=== PATIENT | female | born 1970 | race Caucasian/White ===

== ENCOUNTER 2020-01-03 07:35 | Outpatient (CLI) | payer MEDICARE, SELFPAY ==
--- NOTE | 2020-01-03 08:00 | CT_ITS ---
WS: [id number] CT CHEST TECHNIQUE: Noncontrast CT of the chest with coronal and sagittal reformatted images. CLINICAL INFORMATION: Hemoptysis COMPARISON: CT chest November 12, 2012 DLP: 1072.[address] scans at [facility] use at least one of these dose optimization techniques: automat ed exposure control; mA and/or kV adjustment per patient size (includes targeted exams where dose is matched to clinical indication); or iterative reconstruction. FINDINGS: No acute pulmonary infiltrates. Lungs are well aerated. No consolidation or pleural fluid. Two 5 mm n oncalcified pulmonary nodules in the right upper lobe subpleural in location. Small subpleural nodule is unchanged. Slightly hazy groundglass nodule is more prominent compared to 2013. Slight fibrosis r ight lung base. No other suspicious pulmonary opacities. Calcified granuloma left lower lobe. Calcified left hilar no maurice. Normal thyroid gland. No mediastinal or hilar lymphadenopathy. No axillary lymphadenopathy. Adre nal glands are normal. Normal GE junction. Chronic compression anterior wedging at T12 is unchanged s emma 2013. CT/CT chest wo con [id number] IMPRESSION: 1. Two small 5 mm pulmonary nodules in the right upper lobe subpleural in loca tion. More hazy groundglass nodule is more prominent compared to 2013. Subpleur al nodule is stable. Recommend 12 month follow-up. 2. Mild chronic emphysematous changes. No acute pulmonary infiltrates. Slight fibrosis right lung base. 3. No mediastinal or hilar lymphadenopathy. 4. Chronic calcified granulomatous disease. 5. Chronic anterior wedging and compression at T12.
== END 2020-01-03 07:36 | disposition home or self-care (01) ==
LOC: RADWPI 07:43
PROVIDERS: Family Provider Nurse Practitioner Family; PCP Nurse Practitioner Family; Visit Provider Internal Medicine Critical Care Medicine
DX: R04.2 Hemoptysis (principal); R91.8 Other nonspecific abnormal finding of lung field; J43.9 Emphysema, unspecified; D71 Functional disorders of polymorphonuclear neutrophils
CPT/HCPCS: 71250

== ENCOUNTER 2020-04-10 17:03 | Emergency (ER) | payer MEDICARE, SELFPAY ==
[2020-04-10 17:25] VITALS: BP 162/104; PULSE 87; RESP 16; TEMP 36.7; O2SAT 96; BMI 34.9
--- NOTE | 2020-04-10 17:42 | XRR_ITS ---
PROCEDURE INFORMATION: Exam: XR Chest, 1 View Exam date and time: 04/10/2020 6:21 PM Age: 49 years old Clinical indication: Chest pain; Patient HX: C/O epigastric pain; Additional info: Epigastric/chest pain TECHNIQUE: Imaging protocol: XR of the chest Views: 1 view. COMPARISON: CT chest wo con [id number] 01/03/2020 8:00 AM FINDINGS: Lungs: Hyperinflation and mild interstitial prominence. No acute airspace disease. Pleural space: No pleural effusion. Heart/Mediastinum: No cardiomegaly. Bones/joints: Degenerative change and chronic T12 compression deformity, which was better visualized on CT. XR/XR chest 1V portable [id number] IMPRESSION: Hyperinflation, without acute airspace or pleural disease.
--- NOTE | 2020-04-10 17:42 | ECG_ITS ---
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 Measurements Intervals [place] Rate: 94 P: 55 ME: 168 QRS: 6 QRSD: 83 T: 47 QT: 354 QTc: 444 Interpretive Statements SINUS RHYTHM Compared to ECG 05/31/2017 04:35:56 Myocardial infarct finding no longer present Electronically Signed On 04-11-2020 20:26:41 CDT by Cornelia Barbour M.D. [id number] f
--- NOTE | 2020-04-10 17:43 | W.ED.ABDPA2 ---
HPI - Abdominal Pain General: Chief Complaint: Abdominal Pain Stated Complaint: abd pain/N/V Time Seen by Provider: 04/10/20 17:41 History of Present Illness: HPI narrative: Patient is a 49-year-old female comes to the ED with epigastric pain nausea and vomiting. Symptoms started approximately 4 days ago. Epigastric pain is described as a burning pain that goes up into the chest. She rates pain 8 out of 10. She has had acid reflux in the past but never this bad. She also is having some abdominal pain in the right upper quadrant area and also in the lower abdomen. She has taken some antacids but that has not helped. She has trouble keeping any food or drink down and describes that eating fattier foods makes symptoms worse. She also says that laying flat makes symptoms worse and sitting up helps relieve symptoms. Bowel movements have been normal and she denies any constipation or diarrhea, black tarry stool or blood in stool. Associated Symptoms: Reports nausea and vomiting; Denies chills, constipation, diarrhea, dysuria, fever(s), hematochezia and hematuria Review of Systems Const: Denies: fever(s), chills or fatigue Eyes: Denies: change in vision or eye discomfort ENMT: Denies: throat pain, odynophagia, nasal discharge or nasal congestion Card: Denies: chest pain, palpitations, edema, swelling of feet/ankles, dyspnea on exertion or orthopnea Resp: Denies: dyspnea, productive cough or non-productive cough GI: Reports: abdominal pain (Right upper quadrant and epigastric pain and lower abdominal), nausea and vomiting; Denies: diarrhea, constipation or hematochezia : Reports: flank pain (left side) and urinary frequency (increased); Denies: dysuria or hematuria Musc: Denies: neck pain, back pain or extremity swelling Skin/Breast: Denies: rash or new lesions Neuro: Denies: headache(s), numbness in extremities or weakness in extremities PFSH ED PFSH: Medical History COPD (chronic obstructive pulmonary disease) Depression with anxiety HTN (hypertension) Hyperlipidemia Surgical History History of ankle surgery Family History Father Hyperlipidemia Lymphoma Renal failure Mother Hyperlipidemia Social History Smoking and tobacco status: current every day smoker cigarettes Packs smoked per day: 1 Years cigarettes smoked: 25 Alcohol intake: never Lives independently: Yes Household members: family Current occupational status: disabled History of recent travel: No Current gender identity: Female Physical Exam Const: COMMON NORMALS: no acute distress, patient oriented x3 and alert GENERAL APPEARANCE: cooperative; not comfortable (Patient appears uncomfortable due to epigastric pain.) HENMT: COMMON NORMALS: normocephalic HEAD & SCALP: normocephalic MOUTH: Normal oral and palatal mucosa present THROAT: posterior oropharynx normal and uvula midline Eye: COMMON NORMALS: Equal, round and reactive pupils present PUPIL: Yes Equal, round and reactive pupils present Neck/C-Spine: COMMON NORMALS: supple GENERAL: Yes normal visual inspection Resp: COMMON NORMALS: normal respiratory effort, No retractions, No use of accessory muscles and clear to auscultation bilaterally AUSCULTATION: clear to auscultation bilaterally Cardio: COMMON NORMALS: regular rate, regular rhythm, S1 normal heart sound present, S2 normal heart sound present, No gallops present (Cardio), No clicks present (Cardio), No murmurs present (Cardio) and Peripheral pulses 2+ throughout RATE: regular rate RHYTHM: regular rhythm HEART SOUNDS: S1 normal heart sound present and S2 normal heart sound present PERIPHERAL PULSES: Peripheral pulses 2+ throughout GI: COMMON NORMALS: Normal to inspection, nondistended, normoactive bowel sounds present, Soft to palpation and no masses PALPATION: Yes Soft to palpation, Yes Tenderness to palpation present (GI) Details: RUQ (Moderate pain with positive Wright sign.) and other (Epigastric region) and Yes Bladder palpation abnormal : BLADDER/KIDNEY EXAM: Yes Bladder palpation abnormal Bladder abnormal details: tender and Yes CVA tenderness on the left (mild) Back/Pelvis: GENERAL BACK: Yes CVA tenderness Extremity: COMMON NORMALS: normal to inspection and no pedal edema Neuro: COMMON NORMALS: patient oriented x3 SENSORIUM/ORIENTATION: Yes alert GAIT: Yes Normal gait present Skin: COMMON NORMALS: no rashes or lesions noted GENERAL SKIN EXAM: no rashes or lesions noted and dry skin Course Reevaluation(s): Reevaluation #1: I discussed the lab, ultrasound and CT findings with patient. Patient reports improvement in pain and nausea. I told patient that she has a hemoglobin of 9.9 which is low. Patient says she has had chronic issues with anemia and is actually gotten iron transfusions in the past. She says she needs to get in with her PCP to discuss anemia and iron transfusions again. Vital Signs: Vital signs: Vital Signs Temperature 98.0 F 04/10/20 17:25 Pulse Rate 70 04/10/20 20:40 Respiratory Rate 17 04/10/20 20:40 Blood Pressure 158/87 04/10/20 20:40 Pulse Oximetry 96 04/10/20 20:40 MDM - Abdominal Pain MDM Narrative: Medical decision making narrative: Patient is a 49-year-old female who comes to the ED with abdominal pain nausea and vomiting. Abdominal pain is described as in the lower abdomen and in the epigastric and right upper quadrant region. She states it is a burning pain that moves up through her chest. Patient also endorsed some increase urine frequency. Physical exam showed a patient in no acute distress and had some epigastric tenderness upon palpation along with right upper quadrant tenderness and positive Wright sign. Patient was also tender over the bladder and left CVA tenderness.. EKG showed normal sinus rhythm with no signs of ST segment elevation or depression seen and troponins were negative ruling out cardiac cause of pain. White blood cell count 12.8 and hemoglobin 9.9 and creatinine 1.0. UA was positive for bacteria and many white blood cells and red blood cells. Ultrasound of the gallbladder was normal and showed no bladder wall thickening, gallstones ductal dilation or obstruction. CT of the abdomen showed no acute findings. I discussed with patient about her hemoglobin level of 9.9. Her records show on 05/06/19 hemoglobin 8.5 and 11/08/18 hemoglobin 9.7. Patient denies any active bleeding, blood in stool, black tarry stool, hematuria or blood in emesis. Patient states she has a history of iron deficiency anemia and has received iron transfusions in the past for it. She states that she needs to talk with her PCP about her hemoglobin at next visit. Patient's epigastric pain and nausea improved with IV fluids, Zofran Protonix and GI cocktail. Patient was also given IV Rocephin to treat pyelonephritis. Patient diagnosed with acid reflux and pyelonephritis. She was discharged with a prescription of Zofran, ciprofloxacin and pantoprazole. She was told to follow-up with her PCP in 5 to 7 days for reevaluation. She can return to ED if she has any worsening symptoms. Patient understood and agreed with plan. Lab Data: Attestation: I reviewed the patient's lab results. Labs: Lab Results 04/10/20 04/10/20 04/10/20 Range/Units 18:01 18:01 18:01 WBC 12.8 H (4.0-10.0) 10^3/ uL RBC 4.80 (4.1-5.3) 10^6/u L Hgb 9.9 L (11.5-15.3) g/dL Hct 35.9 L (37.0-47.0) % MCV 74.8 L (81-99) fL MCH 20.6 L (28.0-34.0) pg MCHC 27.6 L (30.0-36.0) g/dL RDW 19.7 H (12.1-15.1) % Plt Count 631 H (130-400) 10^3/c mm MPV 9.5 (7.4-10.4) fL Neut % (Auto) 72.1 % Lymph % (Auto) 17.0 % Finney % (Auto) 8.5 % Eos % (Auto) 1.6 % Baso % (Auto) 0.5 % Neut # (Auto) 9.18 H (1.8-7.7) 10^3/u L Lymph # (Auto) 2.2 (0.8-4.8) 10^3/u L Finney # (Auto) 1.1 H (0.2-0.9) 10^3/u L Eos # (Auto) 0.2 (0.0-0.8) 10^3/u L Baso # (Auto) 0.1 (0.0-0.1) 10^3/u L Nucleated RBC % (a uto) 0 % Nucleated RBCs # 0.0 /100WBC Sodium 134 L (136-145) mmol/L Potassium 4.3 (3.5-5.1) mmol/L Chloride 96 L (98-107) mmol/L Carbon Dioxide 25 (22-29) mmol/L Anion Gap 17.3 (5-19) BUN 14 (6-20) mg/dL Creatinine 1.0 H (0.5-0.9) mg/dL GFR Calculation 58.5 L (90-130) mL/min Glucose 126 H (65-115) mg/dL Calculated Osmolal ity 276 L (285-295) mOsm/k g Calcium 10.6 H (8.5-10.5) mg/dL Total Bilirubin 0.3 (0.15-1.2) mg/dL AST 26 (0-32) U/L ALT 29 (0-33) U/L Alkaline Phosphata se 115 H (35-105) IU/L Troponin T Baselin e 8 (0-10) ng/L Troponin T 120 Min [place] (0-10) ng/L Delta Troponin T (0-10) ABS# Total Protein 7.9 (6.6-8.7) g/dL Albumin 4.7 (3.5-5.2) g/dL Globulin 3.2 (1.3-4.6) g/dL Lipase 45 (13-60) U/L HCG, Qual (Negative) Urine Color (Yellow) Urine Appearance (CLEAR) Urine pH (5-7) Ur Specific Gravit y (1.005-1.030) Urine Protein (Negative) Urine Glucose (UA) (Normal) Urine Ketones (Negative) Urine Blood (Negative) Urine Nitrate (Negative) Urine Bilirubin (NEGATIVE) Urine Urobilinogen (Negative) mg/dL Ur Leukocyte Rosi ase (Negative) Urine RBC (0-2) /hpf Urine WBC (0-5) /hpf Ur Squamous Epith Cells (0-5) Amorphous Sediment Urine Bacteria (NONE) 04/10/20 04/10/20 04/10/20 Range/Units 18:01 18:46 19:47 WBC (4.0-10.0) 10^3/ uL RBC (4.1-5.3) 10^6/u L Hgb (11.5-15.3) g/dL Hct (37.0-47.0) % MCV (81-99) fL MCH (28.0-34.0) pg MCHC (30.0-36.0) g/dL RDW (12.1-15.1) % Plt Count (130-400) 10^3/c mm MPV (7.4-10.4) fL Neut % (Auto) % Lymph % (Auto) % Finney % (Auto) % Eos % (Auto) % Baso % (Auto) % Neut # (Auto) (1.8-7.7) 10^3/u L Lymph # (Auto) (0.8-4.8) 10^3/u L Finney # (Auto) (0.2-0.9) 10^3/u L Eos # (Auto) (0.0-0.8) 10^3/u L Baso # (Auto) (0.0-0.1) 10^3/u L Nucleated RBC % (a uto) % Nucleated RBCs # /100WBC Sodium (136-145) mmol/L Potassium (3.5-5.1) mmol/L Chloride (98-107) mmol/L Carbon Dioxide (22-29) mmol/L Anion Gap (5-19) BUN (6-20) mg/dL Creatinine (0.5-0.9) mg/dL GFR Calculation (90-130) mL/min Glucose (65-115) mg/dL Calculated Osmolal ity (285-295) mOsm/k g Calcium (8.5-10.5) mg/dL Total Bilirubin (0.15-1.2) mg/dL AST (0-32) U/L ALT (0-33) U/L Alkaline Phosphata se (35-105) IU/L Troponin T Baselin e (0-10) ng/L Troponin T 120 Min [place] 6.72 (0-10) ng/L Delta Troponin T -1.28 L (0-10) ABS# Total Protein (6.6-8.7) g/dL Albumin (3.5-5.2) g/dL Globulin (1.3-4.6) g/dL Lipase (13-60) U/L HCG, Qual Negative (Negative) Urine Color Yellow (Yellow) Urine Appearance Cloudy (CLEAR) Urine pH 5 (5-7) Ur Specific Gravit y 1.025 (1.005-1.030) Urine Protein Neg (Negative) Urine Glucose (UA) Norm (Normal) Urine Ketones Negative (Negative) Urine Blood 2+ H (Negative) Urine Nitrate Negative (Negative) Urine Bilirubin 1+ H (NEGATIVE) Urine Urobilinogen Norm (Negative) mg/dL Ur Leukocyte Rosi ase 2+ H (Negative) Urine RBC 5-10 H (0-2) /hpf Urine WBC >100 H (0-5) /hpf Ur Squamous Epith Cells 25-40 H (0-5) Amorphous Sediment Not Reportable Urine Bacteria 2+ H (NONE) Imaging Data ^: US: Attestation: I personally reviewed and interpreted this imaging study as follows: Radiologist's impression: Gallbladder ultrasound prelim report showed normal bladder wall thickness, no stones visible, no ductal dilation or obstruction seen. CXR: Attestation: I personally reviewed and interpreted this imaging study as follows: My impression: No acute findings. Pending final radiology report. CT Abd/Pel: Attestation: I personally reviewed and interpreted this imaging study as follows: Radiologist's impression: [place] [address] CT Scan Report Signed Patient: Deandra Bro Unit #: [id number] : 1970 Age/Sex: 49 / F ADM Date: 04/10/20 Loc: ER Room/Bed: Attending Dr: Ordering Provider/Ordering MD: Job Soto Date of Service: 04/10/20 Procedure(s): CT abdomen pelvis wo con [id number] Accession Number(s): [id number] Report Number: [id number] PROCEDURE INFORMATION: Exam: CT Abdomen And Pelvis Without Contrast Exam date and time: 04/10/2020 7:16 PM Age: 49 years old Clinical indication: Nausea and vomiting; Abdominal pain; Localized; Right upper quadrant (ruq); Additional info: Ruq pain, n/v TECHNIQUE: Imaging protocol: Computed tomography of the abdomen and pelvis without contrast. Radiation optimization: All CT scans at this facility use at least one of these dose optimization techniques: automated exposure control; mA and/or kV adjustment per patient size (includes targeted exams where dose is matched to clinical indication); or iterative reconstruction. COMPARISON: CT Abdomen/Pelvis Renal [id number] 05/06/2019 7:20 AM RADIATION DOSE METRICS: Total DLP (mGy-cm): 1298.03 FINDINGS: Lungs: Limited assessment lung bases reveals a stable small 4 mm granuloma posterior basal segment left lower lobe. No visible active cardiopulmonary process within the field of view. Liver: Diffuse fatty infiltration of the liver with geographic focal fatty sparing near the teto hepatis. No visible hepatic mass or cystic structure. Mild hepatomegaly. Gallbladder and bile ducts: Gallbladder unremarkable. No visible cholelithiasis. No intra or extrahepatic biliary ectasia. Pancreas: Normal. No ductal dilation. Spleen: Rare splenic calcified granuloma. Spleen otherwise unremarkable. Adrenals: Normal. No mass. Kidneys and ureters: Normal. No hydronephrosis. Stomach and bowel: Unremarkable. No obstruction. No mucosal thickening. Appendix: The appendix is visualized appears noninflamed. Intraperitoneal space: Unremarkable. No free air. No significant fluid collection. Vasculature: The abdominal aorta is nonaneurysmal. Mild arterial sclerotic disease. Lymph nodes: No visible mesenteric or retroperitoneal lymphadenopathy. Bladder: Unremarkable as visualized. Reproductive: Unremarkable as visualized. Bones/joints: Old compression deformity T12 stable since prior study. No visible acute osseous abnormality. Soft tissues: Small periumbilical hernia containing fat only. Bilateral inguinal hernias containing fat only. CT/CT abdomen pelvis wo con [id number] IMPRESSION: Currently no visible evidence of active or acute abdominal or pelvic pathologic process. Radiation Dose CTDIVOL = (mGy): DLP = 1298.03 (mGy-cm) Dictated By: Tom Brown Signed By: Tom Brown Signed Date/Time: 04/10/201940 DD/ 39 EKG Data ^: EKG 1: Attestation: I personally reviewed and interpreted this EKG as follows: EKG interpretation date: 04/10/20 Interpretation: Normal sinus rhythm, 94 bpm, no ST segment elevation or depression seen. P waves present Discharge Plan Discharge Patient Disposition: Home, Self-Care Clinical Impression: Pyelonephritis Acid reflux disease Qualifiers: Esophagitis presence: esophagitis presence not specified Qualified Code(s): K21.9 - Gastro-esophageal reflux disease without esophagitis Anemia Qualifiers: Anemia type: iron deficiency Iron deficiency anemia type: inadequate dietary iron intake Qualified Code(s): D50.8 - Other iron deficiency anemias Condition: Stable Prescriptions: New ciprofloxacin HCl 500 mg tablet 500 mg PO Q12H 7 Days Qty: 14 RF: 0 ondansetron HCl 4 mg tablet 4 mg PO Q8H PRN (Reason: nausea and vomiting) Qty: 20 RF: 0 pantoprazole 40 mg tablet,delayed release (DR/EC) 40 mg PO DAILY Qty: 30 RF: 0 No Action tramadol 50 mg tablet 50 mg PO Q6H PRN (Reason: Pain) RF: 0 simvastatin 40 mg tablet 40 mg PO DAILY RF: 0 hydroxyzine HCl 50 mg tablet 50 mg PO .COMPLEX PRN (Reason: Itching) RF: 0 olanzapine [Zyprexa] 2.5 mg tablet 5 mg PO DAILY RF: 0 Discharge Orders: Discharge Order (Routine); Ordered 04/10/20 Ordered By: Job Soto Referrals: Helena Zaragoza NP [Primary Care Provider] - Discharge Diet: Advance as tolerated and Low Fat Discharge Activity: Increase activity as tolerated Patient Instructions: Acute Pyelonephritis (ED), Gastroesophageal Reflux Disease (ED) Activity Restrictions/Additional Instructions: Follow-up with medical provider as directed in 5-7 days. Discuss with PCP about your anemia and get hemoglobin rechecked. Take medications as prescribed. Return to the ER or your medical provider if condition worsens. Please read and understand discharge instructions. If any questions, please ask. 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
--- NOTE | 2020-04-10 17:57 | US_ITS ---
WS: [id number] RIGHT UPPER QUADRANT ULTRASOUND HISTORY: RUQ pain with N/V COMPARISON: 11/28/2014 and 04/10/2020 Liver: 13.4 cm in length. Mild coarsened echotexture from hepatic steatosis. No mass or bile duct dil atation. Gallbladder: Normally distended gallbladder with no stones or wall thickening. CBD: 0.3 cm Pancreas: Normal size and echogenicity. Right kidney: 10.4 cm in length. Normal echogenicity with no mass or hydronephrosis. Aorta and IVC: Unremarkable. No ascites. US/US gall bladder [id number] IMPRESSION: Mild hepatic steatosis. Otherwise negative.
[2020-04-10 18:15] LABS: Basophils # 0.1 10^3/uL (0.0-0.1); Basophils % 0.5 %; Eosinophils # 0.2 10^3/uL (0.0-0.8); Eosinophils % 1.6 %; Hematocrit 35.9 % (37.0-47.0); Hemoglobin 9.9 g/dL (11.5-15.3); Lymphocytes # 2.2 10^3/uL (0.8-4.8); Mean Corpuscular HGB Conc 27.6 g/dL (30.0-36.0); Mean Corpuscular Hemoglobin 20.6 pg (28.0-34.0); Mean Corpuscular Volume 74.8 fL (81-99); Mean Platelet Volume 9.5 fL (7.4-10.4); Monocytes # 1.1 10^3/uL (0.2-0.9); Monocytes % 8.5 %; Neutrophils # 9.18 10^3/uL (1.8-7.7); Neutrophils % 72.1 %; Nucleated Red Blood Cells % 0 %; Platelet Count 631 10^3/cmm (130-400); Red Cell Distribution Width 19.7 % (12.1-15.1); White Blood Count 12.8 10^3/uL (4.0-10.0)
[2020-04-10 18:30] LABS: Albumin Level 4.7 g/dL (3.5-5.2); Alkaline Phosphatase 115 IU/L (35-105); Anion Gap 17.3 (5-19); Aspartate Amino Transferase 26 U/L (0-32); Blood Urea Nitrogen 14 mg/dL (6-20); Calcium 10.6 mg/dL (8.5-10.5); Carbon Dioxide 25 mmol/L (22-29); Chloride 96 mmol/L (98-107); Globulin 3.2 g/dL (1.3-4.6); Glomerular Filtration Rate 58.5 mL/min (90-130); Glucose 126 mg/dL (65-115); Lipase 45 U/L (13-60); Osmolality Calculated 276 mOsm/kg (285-295); Potassium 4.3 mmol/L (3.5-5.1); Sodium 134 mmol/L (136-145); Total Bilirubin 0.3 mg/dL (0.15-1.2); Total Protein 7.9 g/dL (6.6-8.7); Troponin(5th) Baseline 8 ng/L (0-10)
[2020-04-10 18:34] LABS: HCG, Serum Qual Negative (Negative)
[2020-04-10 18:40] LABS: Alanine Aminotransferase 29 U/L (0-33)
[2020-04-10] MEDS: ondansetron 2 mg/ML SDV 2 mL 4 MG IVP (18:48)
[2020-04-10 18:49] VITALS: RESP 18
[2020-04-10] MEDS: morphine 4 mg/mL SDV 1 mL IVP (18:49)
[2020-04-10] MEDS: pantoprazole 40 mg SDV IVP (18:52)
[2020-04-10] MEDS: sodium chloride 0.9% 1,000 ML 999 ML IV (18:53)
[2020-04-10] MEDS: lidocaine 2% viscous 15 ML, aluminum-mag hydrox-simethicon 30 ML, sucralfate oral liq 1 GM PO (18:54)
[2020-04-10 18:58] VITALS: PULSE 92; RESP 18; O2SAT 98
--- NOTE | 2020-04-10 18:58 | CTR_ITS ---
PROCEDURE INFORMATION: Exam: CT Abdomen And Pelvis Without Contrast Exam date and time: 04/10/2020 7:16 PM Age: 49 years old Clinical indication: Nausea and vomiting; Abdominal pain; Localized; Right upper quadrant (ruq); Additional info: Ruq pain, n/v TECHNIQUE: Imaging protocol: Computed tomography of the abdomen and pelvis without contrast. Radiation optimization: All CT scans at this facility use at least one of these dose optimization techniques: automated exposure control; mA and/or kV adjustment per patient size (includes targeted exams where dose is matched to clinical indication); or iterative reconstruction. COMPARISON: CT Abdomen/Pelvis Renal [id number] 05/06/2019 7:20 AM RADIATION DOSE METRICS: Total DLP (mGy-cm): 1298.03 FINDINGS: Lungs: Limited assessment lung bases reveals a stable small 4 mm granuloma posterior basal segment left lower lobe. No visible active cardiopulmonary process within the field of view. Liver: Diffuse fatty infiltration of the liver with geographic focal fatty sparing near the teto hepatis. No visible hepatic mass or cystic structure. Mild hepatomegaly. Gallbladder and bile ducts: Gallbladder unremarkable. No visible cholelithiasis. No intra or extrahepatic biliary ectasia. Pancreas: Normal. No ductal dilation. Spleen: Rare splenic calcified granuloma. Spleen otherwise unremarkable. Adrenals: Normal. No mass. Kidneys and ureters: Normal. No hydronephrosis. Stomach and bowel: Unremarkable. No obstruction. No mucosal thickening. Appendix: The appendix is visualized appears noninflamed. Intraperitoneal space: Unremarkable. No free air. No significant fluid collection. Vasculature: The abdominal aorta is nonaneurysmal. Mild arterial sclerotic disease. Lymph nodes: No visible mesenteric or retroperitoneal lymphadenopathy. Bladder: Unremarkable as visualized. Reproductive: Unremarkable as visualized. Bones/joints: Old compression deformity T12 stable since prior study. No visible acute osseous abnormality. Soft tissues: Small periumbilical hernia containing fat only. Bilateral inguinal hernias containing fat only. CT/CT abdomen pelvis wo con [id number] IMPRESSION: Currently no visible evidence of active or acute abdominal or pelvic pathologic process. Radiation Dose CTDIVOL = (mGy): DLP = 1298.03 (mGy-cm)
[2020-04-10 19:11] LABS: Add Urine Microscopic? YES; Bilirubin Urine 1+ (NEGATIVE); Blood Urine 2+ (Negative); Glucose Urine UA Norm (Normal); Ketones Urine Negative (Negative); Leukocyte Esterase Urine 2+ (Negative); Nitrate Urine Negative (Negative); Protein Urine Neg (Negative); Specific Gravity, Urine 1.025 (1.005-1.030); Urine Appearance Cloudy (CLEAR); Urine Color Yellow (Yellow); Urobilinogen Urine Norm (Negative); pH Urine 5 (5-7)
[2020-04-10 19:14] LABS: Add Urine Culture? No; Bacteria Urine 2+; Squamous Epithelial Cell Urine 25-40 (0-5); WBC Urine >100 /hpf (0-5)
[2020-04-10] MEDS: cefTRIAXone 2,000 MG in sodium chloride 0.9% (plus) 50 ML 100 MG IV (19:55)
[2020-04-10 19:57] VITALS: BP 174/92; PULSE 80; RESP 20; O2SAT 98
[2020-04-10 20:15] LABS: Troponin 5 2HR 6.72 ng/L (0-10)
[2020-04-10 20:29] LABS: Troponin 5 2HR Delta -1.28 ABS# (0-10)
[2020-04-10 20:40] VITALS: BP 158/87; PULSE 70; RESP 17; O2SAT 96
== END 2020-04-10 20:41 | disposition home or self-care (01) ==
PROVIDERS: Emergency Provider Physician Assistant; PCP Nurse Practitioner Family
DX: N12 Tubulo-interstitial nephritis, not specified as acute or chronic (principal); K21.9 Gastro-esophageal reflux disease without esophagitis; D50.8 Other iron deficiency anemias; J44.9 Chronic obstructive pulmonary disease, unspecified; I10 Essential (primary) hypertension; E78.5 Hyperlipidemia, unspecified; F17.210 Nicotine dependence, cigarettes, uncomplicated
CPT/HCPCS: 12345; 36415; 71045; 74176; 76705; 80053; 81001; 81003; 83690; 84484; 84703; 85025; 87040; 93005; 96365; 96375; 99283; 99284; C9113; J0696; J2270; J2405; J7030

== ENCOUNTER → 2020-05-08 13:49 | Outpatient (BNVA) | payer MEDICARE, SELFPAY | PROVIDERS: PCP Nurse Practitioner Family; Visit Provider Internal Medicine Rheumatology | DX: M05.79 Rheumatoid arthritis with rheumatoid factor of multiple sites without organ or systems involvement (principal); Z79.899 Other long term (current) drug therapy; Z11.59 Encounter for screening for other viral diseases; Z11.1 Encounter for screening for respiratory tuberculosis; M54.32 Sciatica, left side; F17.210 Nicotine dependence, cigarettes, uncomplicated | CPT/HCPCS: 36415; 82306; 82728; 83540; 83550; 85651; 86140; 86480; 86704; 86803; 87340; 99203 ==

== ENCOUNTER → 2020-05-31 11:14 | Outpatient (BNVA) | payer MEDICARE, SELFPAY | PROVIDERS: PCP Nurse Practitioner Family; Visit Provider Nurse Practitioner | DX: R82.90 Unspecified abnormal findings in urine (principal); N39.0 Urinary tract infection, site not specified; F17.210 Nicotine dependence, cigarettes, uncomplicated; Z71.89 Other specified counseling | CPT/HCPCS: 81000 ==

== ENCOUNTER → 2020-07-01 13:38 | Outpatient (BNVA) | payer MEDICARE, SELFPAY | PROVIDERS: PCP Nurse Practitioner Family; Visit Provider Nurse Practitioner | DX: Z11.59 Encounter for screening for other viral diseases (principal) | CPT/HCPCS: 87635 ==

== ENCOUNTER 2020-07-02 10:49 | Emergency (ER) | payer MEDICARE, SELFPAY ==
[2020-07-02 10:59] VITALS: BP 118/77; PULSE 94; RESP 20; TEMP 39.1; O2SAT 100; BMI 34.4
--- NOTE | 2020-07-02 12:28 | W.ED.FEMALGU ---
HPI - Female Genitourinary General: Chief complaint: Urogenital-Female Stated complaint: NOT FEELING WELL Time Seen by Provider: 07/02/20 12:28 History of Present Illness: HPI Narrative: 50 yo comes in complaining of dysuria and urgency the last couple days also had a cough and diarrhea. She denies any vomiting. She has had some low-grade fever as well she had previously been on an antibiotic for UTI but it still not seem to have resolved MD elicited complaint: UTI , flank pain and difficulty urinating Pertinent past history: recurrent UTIs Onset (ago): day(s) Severity: moderate Quality of pain: cramping Consistency: constant Vaginal discharge: none Vaginal bleeding: none Urinary symptoms: Difficulty Urinating, Dysuria, Flank Pain and Frequency Exacerbating factors: urination Relieving factors: none Associated symptoms: Reports headache(s) and nausea; Deny abdominal pain, short of breath, fevers/chills, rash, seizures, syncope, vaginal bleeding, vaginal discharge or weakness Treatment prior to arrival: none Review of Systems Const: Reports: fever(s), chills, body aches, change in appetite, fatigue and malaise ENMT: Denies: throat pain, ear or mastoid pain, nasal discharge or nasal congestion Card: Denies: syncope Resp: Reports: dyspnea and non-productive cough; Denies: productive cough GI: Reports: nausea; Denies: abdominal pain : Denies: vaginal discharge Skin/Breast: Denies: rash or pruritus Neuro: Reports: headache(s) PFSH ED PFSH: Medical History COPD (chronic obstructive pulmonary disease) Depression with anxiety High risk medication use HTN (hypertension) Hyperlipidemia Immunization counseling Sciatica of left side Seropositive rheumatoid arthritis of multiple sites Surgical History History of ankle surgery Family History Father Hyperlipidemia Lymphoma Renal failure Mother Hyperlipidemia Social History Smoking and tobacco status: current every day smoker cigarettes Packs smoked per day: 0.5 Years cigarettes smoked: 25 [ Other cigarette details: Hx of 1PPD x 25 Years ] Alcohol intake: never Lives independently: Yes Household members: family Current occupational status: disabled History of recent travel: No Current gender identity: Female Physical Exam Const: COMMON NORMALS: no acute distress GENERAL APPEARANCE: cooperative and comfortable ORIENTATION/CONSCIOUSNESS: Yes awake, Yes oriented to person, Yes oriented to place and Yes oriented to time HENMT: COMMON NORMALS: normocephalic, atraumatic and hearing grossly normal bilaterally HEAD & SCALP: normocephalic and atraumatic Neck/C-Spine: COMMON NORMALS: no JVD Resp: AUSCULTATION: rhonchi (slight) and wheezes Cardio: COMMON NORMALS: no JVD, regular rate, regular rhythm and No murmurs present (Cardio) RATE: regular rate RHYTHM: regular rhythm GI: COMMON NORMALS: Soft to palpation and No hepatosplenomegaly present AUSCULTATION: Yes normoactive bowel sounds PALPATION: Yes Soft to palpation, No Tenderness to palpation present (GI), No Guarding due to palpation present (GI) and Yes No hepatosplenomegaly present : SPECULUM EXAM - VAGINA: No vaginal bleeding OB/EXTERNAL & SPECULUM: No vaginal bleeding Extremity: COMMON NORMALS: normal to inspection, capillary refill normal, no clubbing, cyanosis or edema, no calf tenderness and no pedal edema Neuro: SENSORIUM/ORIENTATION: Yes oriented to person, Yes oriented to place and Yes oriented to time Skin: COMMON NORMALS: no rashes or lesions noted GENERAL SKIN EXAM: no rashes or lesions noted Course Vital Signs: Vital signs: Vital Signs Temperature 102.3 F H 07/02/20 10:59 Pulse Rate 88 07/02/20 16:52 Respiratory Rate 23 H 07/02/20 16:52 Blood Pressure 101/66 07/02/20 16:52 Pulse Oximetry 96 07/02/20 16:52 MDM - Female MDM Narrative: Medical decision making narrative: Patient given Rocephin and will be discharged home on Cipro. She would prefer to go home at this point her oxygen sats are good we will have her monitor her oxygen sat with a sat monitor at home increase fluid intake worsening symptoms return to the emergency room. Lab Data: Labs: Lab Results 07/02/20 07/02/20 07/02/20 Range/Units 12:34 12:34 12:34 WBC 17.7 H (4.0-10.0) 10^3/ uL RBC 4.43 (4.1-5.3) 10^6/u L Hgb 9.6 L (11.5-15.3) g/dL Hct 33.7 L (37.0-47.0) % MCV 76.1 L (81-99) fL MCH 21.7 L (28.0-34.0) pg MCHC 28.5 L (30.0-36.0) g/dL RDW 20.4 H (12.1-15.1) % Plt Count 382 (130-400) 10^3/c mm MPV 9.6 (7.4-10.4) fL Neut % (Auto) 88.8 % Lymph % (Auto) 2.3 % [place] % (Auto) 8.2 % Eos % (Auto) 0.0 % Baso % (Auto) 0.3 % Neut # (Auto) 15.76 H (1.8-7.7) 10^3/u L Lymph # (Auto) 0.4 L (0.8-4.8) 10^3/u L [place] # (Auto) 1.5 H (0.2-0.9) 10^3/u L Eos # (Auto) 0.0 (0.0-0.8) 10^3/u L Baso # (Auto) 0.1 (0.0-0.1) 10^3/u L Nucleated RBC % (a uto) 0 % Nucleated RBCs # 0.0 /100WBC Fibrinogen 829 H (174-498) mg/dL D-Dimer 3.03 H (0-0.59) ug/mIFE U Sodium 131 L (136-145) mmol/L Potassium 3.9 (3.5-5.1) mmol/L Chloride 94 L (98-107) mmol/L Carbon Dioxide 23 (22-29) mmol/L Anion Gap 17.9 (5-19) BUN 13 (6-20) mg/dL Creatinine 1.4 H (0.5-0.9) mg/dL GFR Calculation 39.5 L (90-130) mL/min Glucose 141 H (65-115) mg/dL Calculated Osmolal ity 274 L (285-295) mOsm/k g Lactic Acid (0.5-2.2) mmol/L Calcium 9.2 (8.5-10.5) mg/dL Magnesium (1.7-2.3) mg/dL Ferritin (15-150) ng/mL Total Bilirubin 0.4 (0.15-1.2) mg/dL AST 21 (0-32) U/L ALT 19 (0-33) U/L Alkaline Phosphata se 126 H (35-105) IU/L Lactate Dehydrogen ase (135-214) U/L C-Reactive Protein (0.0-4.9) mg/L Total Protein 7.6 (6.6-8.7) g/dL Albumin 3.8 (3.5-5.2) g/dL Globulin 3.8 (1.3-4.6) g/dL Lipase 18 (13-60) U/L Procalcitonin (0-0.5) ng/mL Urine Color (Yellow) Urine Appearance (CLEAR) Urine pH (5-7) Ur Specific Gravit y (1.005-1.030) Urine Protein (Negative) Urine Glucose (UA) (Normal) Urine Ketones (Negative) Urine Blood (Negative) Urine Nitrate (Negative) Urine Bilirubin (Negative) Urine Urobilinogen (Negative) mg/dL Ur Leukocyte Rosi ase (Negative) Urine RBC (0-2) /hpf Urine WBC (0-5) /hpf Ur Squamous Epith Cells (0-5) /hpf Amorphous Sediment Urine Bacteria (NONE) /hpf 07/02/20 07/02/20 07/02/20 Range/Units 12:34 15:33 16:05 WBC (4.0-10.0) 10^3/ uL RBC (4.1-5.3) 10^6/u L Hgb (11.5-15.3) g/dL Hct (37.0-47.0) % MCV (81-99) fL MCH (28.0-34.0) pg MCHC (30.0-36.0) g/dL RDW (12.1-15.1) % Plt Count (130-400) 10^3/c mm MPV (7.4-10.4) fL Neut % (Auto) % Lymph % (Auto) % [place] % (Auto) % Eos % (Auto) % Baso % (Auto) % Neut # (Auto) (1.8-7.7) 10^3/u L Lymph # (Auto) (0.8-4.8) 10^3/u L [place] # (Auto) (0.2-0.9) 10^3/u L Eos # (Auto) (0.0-0.8) 10^3/u L Baso # (Auto) (0.0-0.1) 10^3/u L Nucleated RBC % (a uto) % Nucleated RBCs # /100WBC Fibrinogen (174-498) mg/dL D-Dimer (0-0.59) ug/mIFE U Sodium (136-145) mmol/L Potassium (3.5-5.1) mmol/L Chloride (98-107) mmol/L Carbon Dioxide (22-29) mmol/L Anion Gap (5-19) BUN (6-20) mg/dL Creatinine (0.5-0.9) mg/dL GFR Calculation (90-130) mL/min Glucose (65-115) mg/dL Calculated Osmolal ity (285-295) mOsm/k g Lactic Acid 1.0 (0.5-2.2) mmol/L Calcium (8.5-10.5) mg/dL Magnesium 2.5 H (1.7-2.3) mg/dL Ferritin 54 (15-150) ng/mL Total Bilirubin (0.15-1.2) mg/dL AST (0-32) U/L ALT (0-33) U/L Alkaline Phosphata se (35-105) IU/L Lactate Dehydrogen ase 234 H (135-214) U/L C-Reactive Protein 348.3 H (0.0-4.9) mg/L Total Protein (6.6-8.7) g/dL Albumin (3.5-5.2) g/dL Globulin (1.3-4.6) g/dL Lipase (13-60) U/L Procalcitonin 4.17 H (0-0.5) ng/mL Urine Color Dark yellow (Yellow) Urine Appearance Hazy A (CLEAR) Urine pH 5 (5-7) Ur Specific Gravit y 1.020 (1.005-1.030) Urine Protein 2+ H (Negative) Urine Glucose (UA) Norm (Normal) Urine Ketones 1+ H (Negative) Urine Blood 2+ H (Negative) Urine Nitrate Negative (Negative) Urine Bilirubin Neg (Negative) Urine Urobilinogen 1 H (Negative) mg/dL Ur Leukocyte Rosi ase 2+ H (Negative) Urine RBC 5-10 H (0-2) /hpf Urine WBC >100 H (0-5) /hpf Ur Squamous Epith Cells 0-4 H (0-5) /hpf Amorphous Sediment Not Reportable Urine Bacteria 3+ H (NONE) /hpf Discharge Plan Discharge Patient Disposition: Home Clinical Impression: Urinary tract infection, Suspected 2019-nCoV infection Condition: Stable Prescriptions: New ciprofloxacin HCl 500 mg tablet 500 mg PO BID Qty: 7 RF: 0 No Action tramadol 50 mg tablet 50 mg PO Q6H PRN (Reason: Pain) RF: 0 simvastatin 40 mg tablet 40 mg PO DAILY RF: 0 hydroxyzine HCl 50 mg tablet 50 mg PO .COMPLEX PRN (Reason: Itching) RF: 0 olanzapine [Zyprexa] 2.5 mg tablet 5 mg PO DAILY RF: 0 irbesartan [Avapro] 300 mg tablet 300 mg PO DAILY RF: 0 Anoro Ellipta 62.5-25 mcg/actuation blister with device 1 inh INHALATION DAILY Qty: 60 RF: 3 hydroxychloroquine 200 mg tablet 200 mg PO BID Qty: 60 RF: 2 ondansetron HCl 4 mg tablet 4 mg PO Q8H PRN (Reason: nausea and vomiting) Qty: 20 RF: 0 escitalopram oxalate 10 mg tablet 15 mg PO DAILY RF: 0 Discharge Orders: Discharge Order (Routine); Ordered 07/02/20 Ordered By: Dequan Chen Referrals: Helena Zaragoza, [employer] [Primary Care Provider] - Discharge Diet: Usual diet Discharge Activity: Increase activity as tolerated Activity Restrictions/Additional Instructions: We will discharge home on oral antibiotics. Follow-up with your primary care doctor if not improving. I do highly suspect you have COVID-19 if you have worsening breathing recheck. 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
[2020-07-02 12:41] LABS: Basophils # 0.1 10^3/uL (0.0-0.1); Basophils % 0.3 %; Hematocrit 33.7 % (37.0-47.0); Hemoglobin 9.6 g/dL (11.5-15.3); Lymphocytes # 0.4 10^3/uL (0.8-4.8); Lymphocytes % 2.3 %; Mean Corpuscular HGB Conc 28.5 g/dL (30.0-36.0); Mean Corpuscular Hemoglobin 21.7 pg (28.0-34.0); Mean Corpuscular Volume 76.1 fL (81-99); Mean Platelet Volume 9.6 fL (7.4-10.4); Monocytes # 1.5 10^3/uL (0.2-0.9); Monocytes % 8.2 %; Neutrophils # 15.76 10^3/uL (1.8-7.7); Neutrophils % 88.8 %; Nucleated Red Blood Cells % 0 %; Platelet Count 382 10^3/cmm (130-400); Red Blood Count 4.43 10^6/uL (4.1-5.3); Red Cell Distribution Width 20.4 % (12.1-15.1); White Blood Count 17.7 10^3/uL (4.0-10.0)
[2020-07-02] MEDS: sodium chloride 0.9% 1,000 ML 999 ML IV (13:04)
[2020-07-02 13:05] LABS: Alanine Aminotransferase 19 U/L (0-33); Albumin Level 3.8 g/dL (3.5-5.2); Alkaline Phosphatase 126 IU/L (35-105); Anion Gap 17.9 (5-19); Aspartate Amino Transferase 21 U/L (0-32); Blood Urea Nitrogen 13 mg/dL (6-20); Calcium 9.2 mg/dL (8.5-10.5); Carbon Dioxide 23 mmol/L (22-29); Chloride 94 mmol/L (98-107); Globulin 3.8 g/dL (1.3-4.6); Glomerular Filtration Rate 39.5 mL/min (90-130); Glucose 141 mg/dL (65-115); Lipase 18 U/L (13-60); Osmolality Calculated 274 mOsm/kg (285-295); Potassium 3.9 mmol/L (3.5-5.1); Sodium 131 mmol/L (136-145); Total Bilirubin 0.4 mg/dL (0.15-1.2); Total Protein 7.6 g/dL (6.6-8.7)
[2020-07-02] MEDS: cefTRIAXone 1,000 MG in sodium chloride 0.9% (plus) 50 ML 100 MG IV (13:06)
[2020-07-02 13:12] VITALS: BP 103/70; PULSE 98; RESP 18; O2SAT 95
--- NOTE | 2020-07-02 13:19 | XR_ITS ---
WS: [id number] PORTABLE CHEST HISTORY: Productive cough. COMPARISON: 04/10/2020 Lungs are clear and well expanded. No pleural effusion or pneumothorax. Cardiac size: Normal. Mediastinum/Aorta: Normal mediastinum. No osseous abnormality seen. XR/XR chest 1V portable [id number] IMPRESSION: Unremarkable portable chest.
[2020-07-02] MEDS: acetaminophen 325 mg Tablet 650 MG PO (13:28)
[2020-07-02 14:04] VITALS: BP 101/55; PULSE 91; RESP 22; O2SAT 95
--- NOTE | 2020-07-02 14:27 | PC.NURSE ---
Read and agree with assessment.
[2020-07-02 14:51] LABS: Fibrinogen 829 mg/dL (174-498)
[2020-07-02 14:53] LABS: D Dimer 3.03 ug/mIFEU (0-0.59)
[2020-07-02 15:27] LABS: Procalcitonin 4.17 ng/mL (0-0.5)
[2020-07-02 15:33] VITALS: BP 97/44; PULSE 89; RESP 24; O2SAT 95
[2020-07-02 15:44] LABS: C Reactive Protein 348.3 mg/L (0.0-4.9); Ferritin 54 ng/mL (15-150); Lactate Dehydrogenase 234 U/L (135-214); Magnesium 2.5 mg/dL (1.7-2.3)
[2020-07-02 16:10] LABS: Add Urine Microscopic? YES; Bilirubin Urine Neg (Negative); Blood Urine 2+ (Negative); Glucose Urine UA Norm (Normal); Ketones Urine 1+ (Negative); Leukocyte Esterase Urine 2+ (Negative); Nitrate Urine Negative (Negative); Protein Urine 2+ (Negative); Urine Appearance Hazy (CLEAR); Urine Color Dark Yellow (Yellow); Urobilinogen Urine 1 mg/dL (Negative); pH Urine 5 (5-7)
[2020-07-02 16:11] LABS: Add Urine Culture? Yes; Bacteria Urine 3+ /hpf; Squamous Epithelial Cell Urine 0-4 /hpf (0-5); WBC Urine >100 /hpf (0-5)
[2020-07-02 16:13] VITALS: PULSE 86; RESP 22; O2SAT 98
[2020-07-02 16:52] VITALS: BP 101/66; PULSE 88; RESP 23; O2SAT 96
--- NOTE | 2020-07-03 20:32 | PC.NURSE ---
lab stated 1 of 4 blood cultures came back positive for gram positive cocci in clusters.
== END 2020-07-02 16:53 | disposition home or self-care (01) ==
PROVIDERS: Nurse Practitioner Family; Emergency Provider Family Medicine; PCP Nurse Practitioner Family
DX: Z20.828 Contact with and (suspected) exposure to other viral communicable diseases (principal); N39.0 Urinary tract infection, site not specified
CPT/HCPCS: 12345; 71045; 80053; 81001; 82728; 83605; 83615; 83690; 83735; 84145; 85025; 85378; 85384; 86140; 87040; 87077; 87086; 87186; 87205; 96365; 99283; 99284; J0696; J7030

== ENCOUNTER → 2020-07-31 11:39 | Outpatient (BNVA) | payer MEDICARE, SELFPAY | PROVIDERS: PCP Nurse Practitioner Family; Visit Provider Internal Medicine Rheumatology | DX: M05.79 Rheumatoid arthritis with rheumatoid factor of multiple sites without organ or systems involvement (principal); Z79.899 Other long term (current) drug therapy; M54.32 Sciatica, left side; N30.90 Cystitis, unspecified without hematuria; F17.210 Nicotine dependence, cigarettes, uncomplicated | CPT/HCPCS: 99214 ==

== ENCOUNTER 2022-05-22 09:31 | Outpatient (CLI) | payer MEDICARE, MEDICAID, SELFPAY ==
--- NOTE | 2022-05-22 09:39 | MM_ITS ---
WS: [id number] VIEWS: MLO and CC views both breasts. 3D digital tomosynthesis is also included in this exam. Comparison made with prior exam of 08/10/2013, 12/12/2015.. Findings: There was no sign of mass, architectural distortion or suspicious calcification in either breast. Fa [place]ty MM/[place] [id number] Impression: BI-RADS: 2-Benign FOLLOW-UP: 1 Year Follow-up This mammogram was also analyzed by the Computer Aided Detection System R2 Imag e Director Of Labor Relations.
== END 2022-05-22 09:32 | disposition home or self-care (01) ==
PROVIDERS: PCP Family Medicine; Visit Provider Family Medicine
DX: Z12.31 Encounter for screening mammogram for malignant neoplasm of breast (principal)
CPT/HCPCS: 77063; 77067

== ENCOUNTER → 2023-05-05 08:27 | Outpatient (BNVA) | payer MEDICARE, MEDICAID, SELFPAY | PROVIDERS: PCP Family Medicine; Visit Provider Student in an Organized Health Care Education/Training Program | DX: G56.23 Lesion of ulnar nerve, bilateral upper limbs | CPT/HCPCS: 73130; 99204 ==

== ENCOUNTER → 2023-07-21 14:56 | Outpatient (BNVA) | payer MEDICARE, SELFPAY | PROVIDERS: PCP Family Medicine; Referring Provider Student in an Organized Health Care Education/Training Program; Visit Provider Specialist | DX: G56.03 Carpal tunnel syndrome, bilateral upper limbs (principal); G56.22 Lesion of ulnar nerve, left upper limb | CPT/HCPCS: 95885; 95910; 95913; 99202 ==

== ENCOUNTER 2023-08-05 07:47 | Outpatient (CLI) | payer MEDICARE, SELFPAY ==
--- NOTE | 2023-08-05 07:52 | MR_ITS ---
WS: [id number] MRI BRAIN WITHOUT CONTRAST HISTORY: SLURRED SPEECH COMPARISON: None available. TECHNIQUE: Diffusion imaging, multiplanar T1, T2 and FLAIR imaging obtained. No evidence for acute infarct or hemorrhage. Shi-white matter differentiation is normal. Normal florentino ocampal formations. Minimal small vessel ischemic type changes in the subcortical white matter. No pr ior infarct. No remote or acute infarcts are volume loss. Ventricles and extra-axial spaces are normal. No inferior displacement of cerebellar tonsils. The sella turcica and pituitary gland are unremarkabl e. Dural venous sinuses and [place] demonstrate no abnormality on this unenhanced studies. Paranasal sinuses: Clear. Mastoid air cells: Normal. Calvarium and scalp: Intact. IMPRESSION: 1. Minimal small vessel ischemic type changes in the subcortical white matter. 2. No acute infarct.
== END 2023-08-05 07:48 | disposition home or self-care (01) ==
LOC: RAD 07:47
PROVIDERS: PCP Family Medicine; Visit Provider Family Medicine
DX: R47.81 Slurred speech (principal)
CPT/HCPCS: 70551

== ENCOUNTER → 2023-08-18 08:46 | Outpatient (BNVA) | payer MEDICARE, SELFPAY | PROVIDERS: PCP Family Medicine; Visit Provider Student in an Organized Health Care Education/Training Program | DX: G56.03 Carpal tunnel syndrome, bilateral upper limbs (principal); G56.22 Lesion of ulnar nerve, left upper limb; T84.84XA Pain due to internal orthopedic prosthetic devices, implants and grafts, initial encounter; Y79.2 Prosthetic and other implants, materials and accessory orthopedic devices associated with adverse incidents | CPT/HCPCS: 73080; 99214 ==

== ENCOUNTER 2023-10-01 07:11 | Day surgery (SDC) | payer MEDICARE, MEDICAID, SELFPAY ==
[2023-10-01] VITALS (13 sets, daily range): BP systolic 71–127; BP diastolic 44–82; PULSE 53–92; RESP 16–18; TEMP 36.1–36.2; O2SAT 92–99; BMI 37.3
[2023-10-01] MEDS: sodium chloride 0.9% 1,000 ML 30 ML IV (07:35)
[2023-10-01] MEDS: ketorolac 30 mg/mL INJ IVP (07:36)
[2023-10-01] MEDS: acetaminophen 1,000 MG/100 ML PIGGYBACK 400 MG IV (07:36)
[2023-10-01] MEDS: scopolamine 1.5 Patch 1 PATCH TRANSDERMA (07:36)
--- NOTE | 2023-10-01 07:42 | ANES.PREANE2 ---
Pre-Anesthetic Assessment Height/Weight: Height 1.7 m Weight 107.955 kg Temp Pulse Resp BP Pulse Ox O2 Del Method 97 F L 62 18 127/82 96 Room Air 10/01/23 07:26 10/01/23 07:26 10/01/23 07:26 10/01/23 07:26 10/01/23 07:26 10/01/23 07:26 Operation Date: 10/01/23 08:45 Proposed Procedures p Right Carpal Tunnel Revision(Right) - Murphy Lutzatt, DO Was Beta Kirill taken within 24 hours: N/A Was Clonidine taken within 24 hours: N/A Social No tobacco 0.5 pack(s) per day Smoked today Exam alert and oriented x 3 Airway Submandibular: within normal limits Cervical ROM: within normal limits Mallampati: Class II Dentition: chipped Comments: Comments: poor dentition History/ROS No significant history except as noted and No significant complaints Pulmonary Chronic Obstructive Pulmonary Disease and Cough Metabolic Hyperlipidemia Neuropsych Anxiety and Depression Anesthetic Plan ASA status: 2 Anesthesia: General and MAC Risk of > 500 ml blood loss (7ml/kg in children): No Medications/Allergies Home Medications Medication Instructions Recorded Confirmed Last Taken Type simvastatin 40 mg tablet 40 mg PO DAILY 09/22/19 09/30/23 09/30/23 History tramadol 50 mg tablet 50 mg PO Q6H PRN Pain 09/22/19 09/30/23 09/30/23 History hydroxyzine HCl 50 mg tablet 50 mg PO BID 07/06/22 09/30/23 09/30/23 History chlorthalidone 25 mg tablet 25 mg PO DAILY 10/31/22 09/30/23 09/30/23 History irbesartan 300 mg tablet 300 mg PO DAILY 10/31/22 09/30/23 09/30/23 History escitalopram oxalate 20 mg tablet 20 mg PO DAILY 05/05/23 09/30/23 09/30/23 History amoxicillin 875 mg-potassium 1 tab PO BID 10 days #20 tabs 09/24/23 09/30/23 09/30/23 Rx clavulanate 125 mg tablet fluconazole 150 mg tablet 150 mg PO Q3D 2 doses #2 tabs 09/24/23 09/30/23 09/30/23 Rx Allergies Allergy/AdvReac Type Severity Reaction Status Date / Time tizanidine [From Zanaflex] Allergy syncope Verified 09/30/23 13:03 Current Medications Generic Name Dose Route Start Last Admin Trade Name Freq PRN Reason Stop Dose Admin Sodium Chloride 1,000 mls @ 30 mls/hr 10/01/23 06:15 10/01/23 07:35 Sodium Chloride 0.9% IV 10/02/23 06:14 30 mls/hr .Q24H LIZZY Administration PFSH Anesthesia Medical History COPD (chronic obstructive pulmonary disease) Cystitis ESBL E Coli Depression with anxiety High risk medication use HTN (hypertension) Hyperlipidemia Immunization counseling Sciatica of left side Seropositive rheumatoid arthritis of multiple sites Surgical History History of ankle surgery Family History Father Hyperlipidemia Lymphoma Renal failure Mother Hyperlipidemia Social History Smoking and tobacco/nicotine status: current every day tobacco/nicotine user cigarettes Packs smoked per day: 0.5 Years cigarettes smoked: 25 [ Other cigarette details: Hx of 1PPD x 25 Years] Alcohol intake: never Substance/Drug Use: never Lives independently: Yes Household members: family Current occupational status: disabled Do you think of yourself as: Straight/Heterosexual Current gender identity: Female Data Anesthesia Cardiac Studies: No Data to Display
[2023-10-01] MEDS: albuterol 2.5 mg/3 mL Neb INHALATION (08:18)
[2023-10-01] MEDS: ipratropium 0.5 mg/2.5 mL Neb INHALATION (08:18)
--- NOTE | 2023-10-01 10:08 | W.PM.OPSFHP ---
Same Day Surgery H&P Indication for Procedure/HPI DATE OF PROCEDURE: October 01, 2023 CHIEF COMPLAINT/INDICATIONFOR SURGICAL PROCEDURE: Right carpal tunnel syndrome PREOP DIAGNOSIS: Right carpal tunnel syndrome recurrent PLANNED PROCEDURE: Operation Date: 10/01/23 08:45 Proposed Procedures p Right Carpal Tunnel Revision(Right) - Murphy Soto DO Medications/Allergies* Home Medications Medication Instructions Recorded Confirmed Type simvastatin 40 mg tablet 40 mg PO DAILY 09/22/19 09/30/23 History tramadol 50 mg tablet 50 mg PO Q6H PRN Pain 09/22/19 09/30/23 History hydroxyzine HCl 50 mg tablet 50 mg PO BID 07/06/22 09/30/23 History chlorthalidone 25 mg tablet 25 mg PO DAILY 10/31/22 09/30/23 History irbesartan 300 mg tablet 300 mg PO DAILY 10/31/22 09/30/23 History escitalopram oxalate 20 mg tablet 20 mg PO DAILY 05/05/23 09/30/23 History Allergies/Adverse Reactions Allergy/AdvReac Type Severity Reaction Status Date / Time tizanidine [From Zanaflex] Allergy syncope Verified 09/30/23 13:03 Current Medications: Generic Name Dose Route Start Last Admin Trade Name Freq PRN Reason Stop Dose Admin Sodium Chloride 1,000 mls @ 30 mls/hr 10/01/23 06:15 10/01/23 07:35 Sodium Chloride 0.9% IV 10/02/23 06:14 30 mls/hr .Q24H LIZZY Administration Pertinent History/Comorbid Conditions* Medical History (Updated 09/10/23 @ 11:21 by Murphy Soto DO) Cystitis ESBL E Coli Sciatica of left side Immunization counseling High risk medication use Seropositive rheumatoid arthritis of multiple sites Depression with anxiety HTN (hypertension) COPD (chronic obstructive pulmonary disease) Hyperlipidemia Surgical History (Updated 12/26/19 @ 10:42 by Dasha Levin MD) History of ankle surgery Family History (Updated 09/22/19 @ 08:26 by Patricia Bhakta LPN) Hyperlipidemia Father Mother Lymphoma Father Renal failure Father Social History Smoking and tobacco/nicotine status: current every day tobacco/nicotine user cigarettes Packs smoked per day: 0.5 Years cigarettes smoked: 25 [ Other cigarette details: Hx of 1PPD x 25 Years] Alcohol intake: never Substance/Drug Use: never Lives independently: Yes Household members: family Current occupational status: disabled Do you think of yourself as: Straight/Heterosexual Current gender identity: Female Pertinent Exam Findings alert, oriented x 3, operative site marked and procedure specific exam findings Positive Tinel's median nerve compression test as well as Phalen's on the right wrist negative Tinel's over the elbow over the ulnar nerve distribution median nerve paresthesias appreciated hand warm well-perfused. Previous carpal tunnel incision noted. Recommendations Surgery/Procedure today Other Plans: Plan to proceed with right carpal tunnel revision release. Coding Level of Care Code Acute Code for [facility]
[2023-10-01] MEDS: ceFAZolin 2,000 MG in sodium chloride 0.9% (plus) 50 ML 100 MG IV (10:19)
[2023-10-01] MEDS: ROPivacaine 0.5% SDV 30 mL 25 MG INJECTION (10:39)
[2023-10-01] MEDS: lidocaine-epi 2% 20 mL INJ INJECTION (10:39)
--- NOTE | 2023-10-01 10:50 | P.BOP_ITS ---
Date of Procedure: 10/01/2023 Surgeon: Murphy Soto DO Tempering Machine Operator(s): ISABEL West Procedure(s) performed: Right carpal tunnel release revision Right median nerve neurolysis Findings of the procedure(s): Patient was found to have recurrent right carpal tunnel syndrome with significant adhesions around the median nerve as result patient underwent carpal tunnel release revision as well as median nerve neurolysis procedure went as planned with no issues or complications. Estimated blood loss: 1 mL Specimen(s) removed: None Post-operative diagnosis: Recurrent right carpal tunnel syndrome
--- NOTE | 2023-10-01 10:51 | PM.OP ---
Operative Report Date of procedure: October 01, 2023 Surgeon: Murphy Soto DO Improvement Auditor: EVER West Procedure: Preoperative diagnosis: Recurrent right carpal tunnel syndrome Post-op diagnosis: Same Procedure done: 1.? Revision right carpal tunnel?release Surgeon: Murphy Soto DO Anesthesia: MAC (Local) Estimated blood loss: [1mL Tourniquet time [9]minutes IV fluids: See anesthesia?record Complications: None Findings: See operative?report narrative Condition: stable Disposition: same day Brief History: Patient is a pleasant [53]year-old [female] with?recurrent right carpal tunnel syndrome.? Patient has been worked up in the outpatient setting findings and physical examination consistent with this.? Patient nerve conduction studies consistent with carpal tunnel syndrome.? Patient has had a prior carpal tunnel release surgery several years ago and recentely had a nerve study showing recurrent right carpal tunnel syndrome on my examination does have consistent findings with this and classic carpal tunnel symptoms on examination. We detailed out patient's?risk benefits complication alternatives with surgical and nonsurgical treatment options. Through shared decision making, patient agrees to proceed with surgical intervention of the right carpal tunnel?release revision.? Patient understands and agrees with current plan.? All questions answered.? Patient elects to proceed with surgical intervention with carpal tunnel?release. Procedure: Patient seen and evaluated in the preoperative holding area.? Consent was?reviewed and signed with patient.? Correct extremity was marked.? Patient was seen evaluated by the anesthesia department once cleared for surgery was brought back to the operative suite.? Patient was kept on [facility] in supine position all bony prominences were well-padded patient properly secured to the bed.??Right upper extremity was then placed onto an armboard.? A nonsterile tourniquet was applied to the?RIght upper arm.? Patient underwent anesthesia per the anesthesia department.? Patient's?Right upper extremity was then prepped and draped in standard orthopedic fashion.? Final timeout performed.? Patient?received appropriate preoperative antibiotics. Under sterile aseptic technique patient?received local anesthesia over the preplanned carpal tunnel incision site. Esmarch was used to exsanguinate the?Right upper extremity and tourniquet was insufflated to 250 mmHg. A Extensive open?Right carpal tunnel incision was made.? Starting distally at Tabor's cardinal line in line with the fourth?ray extending proximally Seth past the wrist crease and into the distal forearm. Sharp scalpel incision was made through skin and subcutaneous tissue.? Self-retaining?retractor was placed and the palmar fascia was identified.? This was then split longitudinally and direct visualization of the recurrent transverse carpal ligament was then made.? I then utilizing scalpel feathered through the transverse carpal ligament until I entered the floor of the transverse carpal tunnel ligament into the carpal tunnel.? Next I switched to dissection scissors and completed my?release of the transverse carpal ligament distally with care to protect the?recurrent motor branch.? I completely?released into the palmar fat and until no entrapment was noted distally.? Care was made to protect the superficial palmar arch during my distal dissection.?? Next I made an incision proximally. Once I had identified the median nerve distally I placed a [place] underneath this and continued to dissect through the transverse carpal ligament proximally. Once the entirety of the carpal tunnel was released and open it was noted there was significant tethering of patient's forearm fascia as well as palmaris longus tendon as result given the tethering of the palmar fascia as well as the median antebrachial fascia I then utilized Littler dissection scissors to excise this into the distal forearm to where there was no further areas of entrapment this completely released the median nerve in this region. This was all performed under direct loupe magnification and patient was found to have a complete lax and fully exposed and decompressed nerve from the Tabor's cardinal line to the distal third of the forearm with no areas of entrapment or tethering. There was hourglass shape of the median nerve showing its compression, The rest of the contents of the carpal tunnel were healthy and intact. No masses were noted.? Tendons appeared healthy.? Wound was then thoroughly irrigated.? Tourniquet deflated.? Hemostasis satisfactory with bipolar electrocautery.? I then closed the incision with interrupted nylon stitches.? Xeroform 4 x 4's and a bulky soft dressing was applied.? Volar splint applied given incision went across the wrist crease Patient was then awakened from anesthesia and taken to PACU in stable condition.? Patient tolerated procedure without complications. Disposition: Patient taken to PACU in stable condition?recovering well.? Dressing clean dry and intact.? Patient will?receive appropriate discharge instructions as well as pain medication postoperatively.? Patient to follow-up with me in the office in 2 weeks.? They understand they may be nonweightbearing to the?right hand.? Patient should keep incision clean dry and intact.? Patient understands if any questions or concerns may contact the office.
--- NOTE | 2023-10-01 14:19 | ANE.PACU2 ---
Inpatient post-anesthesia follow up: Airway intact: Yes Vital signs: Temperature 97.2 F Pulse Rate 57 Respiratory Rate 17 Blood Pressure 100/59 Pulse Oximetry 99 Oxygen Delivery Me thod Room Air Oxygen Flow Rate 6 Fraction of Inspir ed Oxygen Hydration adequate: Yes Nausea and vomiting: No Pain level: 1 Mental status: Baseline
== END 2023-10-01 12:31 | disposition home or self-care (01) ==
PROVIDERS: PCP Family Medicine; Visit Provider Student in an Organized Health Care Education/Training Program
PROC: (CPT 64721; principal; 2023-10-01 08:45)
DX: G56.01 Carpal tunnel syndrome, right upper limb (principal); J44.9 Chronic obstructive pulmonary disease, unspecified; E78.5 Hyperlipidemia, unspecified; I10 Essential (primary) hypertension; M05.89 Other rheumatoid arthritis with rheumatoid factor of multiple sites; F17.210 Nicotine dependence, cigarettes, uncomplicated
CPT/HCPCS: 64721; 94640; J0131; J0690; J1885; J2250; J2704; J2795; J3010; J7030; J7613; J7644

== ENCOUNTER → 2023-10-20 08:02 | Outpatient (BNVA) | payer MEDICARE, SELFPAY | PROVIDERS: PCP Family Medicine; Visit Provider Physician Assistant | DX: G56.22 Lesion of ulnar nerve, left upper limb (principal); G56.03 Carpal tunnel syndrome, bilateral upper limbs | CPT/HCPCS: 99214 ==

== ENCOUNTER 2023-11-18 10:43 | Day surgery (SDC) | payer MEDICARE, SELFPAY ==
[2023-11-18] VITALS (18 sets, daily range): BP systolic 98–142; BP diastolic 63–90; PULSE 66–96; RESP 14–18; TEMP 36.1–37; O2SAT 92–100; BMI 36.1
--- NOTE | 2023-11-18 08:54 | XR_ITS ---
WS: [id number] INTRAOPERATIVE TECHNIQUE: 1 Spot fluoroscopic images for intraoperative purposes. FLUOROSCOPY TIME: 52 seconds CLINICAL INFORMATION: AUNG PICS FINDINGS: Single lateral view of the elbow obtained for intraoperative purposes IMPRESSION: Images obtained for intraoperative purposes.
[2023-11-18] MEDS: ketorolac 30 mg/mL INJ IVP (11:27)
[2023-11-18] MEDS: scopolamine 1.5 Patch 1 PATCH TRANSDERMA (11:27)
[2023-11-18] MEDS: acetaminophen 1,000 MG/100 ML PIGGYBACK 400 MG IV (11:28)
[2023-11-18] MEDS: sodium chloride 0.9% 1,000 ML 30 ML IV (11:28)
--- NOTE | 2023-11-18 11:31 | P.HPUD_ITS ---
Surgery/Procedure H&P Update DATE OF PROCEDURE: November 18, 2023 DATE H&P PERFORMED: 10/20/23 H&P UPDATE INFORMATION: I have reviewed H&P completed within last 30 days, I have examined patient prior to procedure and No changes to prior documentation CHANGES TO PREVIOUS DOCUMENTATION: No change in HPI she is currently on antibiotics for poor dentition. At this point in time since no hardware is going and we can proceed with surgical in tervention discussed with patient she understands and agrees. We reviewed her hardware and previous injury to the elbow. At this point in time this hardware does give her pain and prominence and she would like to have this removed while were assessing and evaluating the nerve. At this point in time we will proceed with a left carpal tunnel release revision, left cubital tunnel release with possible ulnar nerve transposition, left elbow hardware removal. Understanding risk of surgery she elects to proceed all questions answered at this time. PREOP DIAGNOSIS: Left cubital tunnel syndrome, left carpal tunnel syndrome, painful hardware PRIMARY INDICATION FOR PROCEDURE: Left cubital tunnel syndrome, left cubital tunnel syndrome, left elbow painful orthopedic hardware PLANNED PROCEDURE: Operation Date: 11/18/23 12:25 Proposed Procedures p Carpal Tunnel Release/ carpal tunnel release Revision(Left) - Murphy Soto DO s Cubital Tunnel Release/ left cubital tunnel release with possible ulnar nerve transposition.(Left) - Murphy Soto DO
--- NOTE | 2023-11-18 11:43 | ANES.PREANE2 ---
Pre-Anesthetic Assessment Height/Weight: Height 1.73 m Weight 107.955 kg Temp Pulse Resp BP Pulse Ox O2 Del Method 97.0 F L 66 17 119/90 97 Room Air 11/18/23 11:03 11/18/23 11:03 11/18/23 11:03 11/18/23 11:03 11/18/23 11:03 11/18/23 11:03 Preop Diagnosis: Left cubital tunnel syndrome, left carpal tunnel syndrome, painful hardware Operation Date: 11/18/23 12:25 Proposed Procedures p Carpal Tunnel Release/ carpal tunnel release Revision(Left) - Murphy Soto DO s Cubital Tunnel Release/ left cubital tunnel release with possible ulnar nerve transposition.(Left) - Murphy Soto DO Familial anesthetic complications: none Was Beta Kirill taken within 24 hours: N/A Was Clonidine taken within 24 hours: N/A Last intake: Intake Last Liquid Date 11/17/23 Last Liquid Time 20:00 Last Solid Date 11/17/23 Last Solid Time 15:00 Social Tobacco and No alcohol Exam alert, oriented x 3, clear to auscultation bilaterally and regular rate & rhythm Airway Submandibular: within normal limits Cervical ROM: within normal limits Mallampati: Class II Dentition: partials Pulmonary Chronic Obstructive Pulmonary Disease CV/HEM Hypertension Metabolic Morbid Obesity Neuropsych Neuropathy Anesthetic Plan ASA status: 3 Anesthesia: General Medications/Allergies Home Medications Medication Instructions Recorded Confirmed Last Taken Type simvastatin 40 mg tablet 40 mg PO DAILY 09/22/19 11/17/23 11/17/23 History tramadol 50 mg tablet 50 mg PO Q6H PRN Pain 09/22/19 11/17/23 09/30/23 History hydroxyzine HCl 50 mg tablet 50 mg PO BID 07/06/22 11/17/23 11/17/23 History chlorthalidone 25 mg tablet 25 mg PO DAILY 10/31/22 11/17/23 11/17/23 History irbesartan 300 mg tablet 300 mg PO DAILY 10/31/22 11/17/23 11/17/23 History escitalopram oxalate 20 mg tablet 20 mg PO DAILY 05/05/23 11/17/23 11/17/23 History tramadol 50 mg tablet 50 mg PO Q6H PRN pain #20 tabs 10/01/23 11/18/23 11/17/23 Rx albuterol sulfate 90 mcg/actuation 2 puff inhalation QID #6.7 grams 11/03/23 11/17/23 Unknown Rx aerosol inhaler (Ventolin HFA) budesonide 160 mcg-glycopyr 9 2 inh inhalation BID 11/03/23 11/17/23 Unknown History mcg-formot 4.8 mcg/actuation HFA inhaler (Breztri Aerosphere) clindamycin HCl 300 mg capsule 300 mg PO TID 7 days #21 caps 11/17/23 11/18/23 11/17/23 Rx fluconazole 150 mg tablet 150 mg PO Q3D 2 doses #2 tabs 11/17/23 11/18/23 11/18/23 Rx Allergies Allergy/AdvReac Type Severity Reaction Status Date / Time tizanidine [From Zanaflex] Allergy syncope Verified 11/17/23 09:05 Current Medications Generic Name Dose Route Start Last Admin Trade Name Freq PRN Reason Stop Dose Admin Sodium Chloride 1,000 mls @ 30 mls/hr 11/18/23 11:00 11/18/23 11:30 Sodium Chloride 0.9% IV 11/19/23 10:59 30 mls/hr .Q24H LIZZY Infusion PFSH Anesthesia Medical History Cystitis ESBL E Coli Sciatica of left side Immunization counseling High risk medication use Seropositive rheumatoid arthritis of multiple sites Depression with anxiety HTN (hypertension) COPD (chronic obstructive pulmonary disease) Hyperlipidemia Surgical History History of ankle surgery Family History Father Hyperlipidemia Lymphoma Renal failure Mother Hyperlipidemia Social History Smoking and tobacco/nicotine status: current every day tobacco/nicotine user cigarettes Packs smoked per day: 0.5 Years cigarettes smoked: 25 [ Other cigarette details: Hx of 1PPD x 25 Years] Alcohol intake: never Substance/Drug Use: never Lives independently: Yes Household members: family Current occupational status: disabled Do you think of yourself as: Straight/Heterosexual Current gender identity: Female Data Anesthesia Cardiac Studies: No Data to Display
[2023-11-18] MEDS: ceFAZolin 2,000 MG in sodium chloride 0.9% (plus) 50 ML 100 MG IV (12:46)
[2023-11-18] MEDS: lidocaine-epi 1% 20 mL INJ INJECTION (14:39)
[2023-11-18] MEDS: ROPivacaine 0.5% SDV 30 mL 150 MG INJECTION (14:39)
--- NOTE | 2023-11-18 14:51 | W.PM.BPON ---
Date of Procedure: [11/18/2023] Surgeon: Murphy Soto DO Web Services Manager(s): Job Soto PA-C Procedure(s) performed: #1 left carpal tunnel revision release #2 left elbow (olecranon) deep hardware removal (7 x K wire and 1 x cerclage wire) #3 left elbow olecranon bursitis excision #4 left cubital tunnel release with ulnar nerve neurolysis Findings of the procedure(s): [Patient was found to have severe entrapment of the median nerve at the wrist and revision release went as planned patient was also found to have deep orthopedic hardware tension band construct with multiple free K wires it was all removed atraumatically along the elbow. One of the wires had migrated and was irritating the nerve distally past the medial epicondyle. Patient was found to not have a transposition she had significant tethering of the ulnar nerve at the elbow I subsequently performed a standard cubital tunnel release and the nerve did not sublux and was left alone and released in situ. She did have significant inflamed as well as pronounced olecranon bursa which was excised as well. Procedure went as planned no complications given the wrist incision goes past the wrist crease she was placed in a volar splint and will be in a sling and will follow-up in the office in 2 weeks no complications during the procedure.] Estimated blood loss: [10mL] Specimen(s) removed: Previous orthopedic hardware removed Post-operative diagnosis: Left cubital tunnel syndrome, left recurrent carpal tunnel syndrome, left olecranon bursitis, retained left elbow orthopedic hardware with healed olecranon.
--- NOTE | 2023-11-18 15:07 | P.PCN_ITS ---
PACU note Narrative: Patient is a 53-year-old female who just underwent a left carpal tunnel release, left cubital tunnel release and orthopedic hardware removal at elbow. Patient transferred to PACU in stable condition. Pain is well controlled. Splint and Dressing on hand is dry and in place. Patient's fingers are warm and well- perfused. normal cap refill under 2 seconds. Unable to assess sensation and motor due to residual anesthetic. Exam: somnolent, arousable Disposition: discharged
--- NOTE | 2023-11-18 15:19 | ANE.PACU2 ---
Inpatient post-anesthesia follow up: Airway intact: Yes Vital signs: Temperature 97.0 F Pulse Rate 66 Respiratory Rate 17 Blood Pressure 119/90 Pulse Oximetry 97 Oxygen Delivery Me thod Room Air Oxygen Flow Rate Fraction of Inspir ed Oxygen Hydration adequate: Yes Nausea and vomiting: No Pain level: 3 Mental status: Baseline
[2023-11-18] MEDS: fentaNYL 50 mcg/mL INJ 2mL IVP (15:40)
--- NOTE | 2023-11-18 15:55 | P.OP_ITS ---
Operative Report Date of procedure: November 18, 2023 Surgeon: Murphy Soto DO Gas Engine Performance Engineer: Job Soto PA-C: PA was necessary for assistance in this case with hand positioning to execute the procedure, retraction and protection of neurovascular structures as well as to assist with wound closure and dressing application. Procedure: Preoperative diagnosis: Painful residual orthopedic hardware status post ORIF olecranon healed Left cubital tunnel syndrome Left carpal tunnel syndrome recurrent Postop Diagnosis: Same, & Left Olecranon bursitis Procedure done: #1 left carpal tunnel revision release #2 left elbow (olecranon) deep hardware removal (7 x K wire and 1 x cerclage wire) #3 left elbow olecranon bursitis excision #4 left cubital tunnel release with ulnar nerve neurolysis Surgeon: Murphy Soto DO Estimated blood loss: 10 mL Tourniquet? 64 minutes IV fluids: 1200 mL Complications: None Findings: See operative report narrative Condition: stable Disposition: same day Brief History: Patient's been seen and worked up in the outpatient setting and findings consistent with preoperative diagnosis.? Patient has Left carpal tunnel syndrome recurrent as well as Left?cubital tunnel syndrome which has been worked up in the outpatient setting has physical exam findings consistent with this as well as confirmatory nerve conduction/EMG nerve conduction study consistent with diagnosis.? Patient also has residual old orthopedic hardware at the elbow over the olecranon that is painful and through shared decision making would like to h ave this taken out in the same time as cubital tunnel release surgery. Patient's failed conservative treatment.? As result through shared decision making agreed to proceed with? Left carpal tunnel and Left?cubital tunnel release we talked about treatment options as far as nonoperative and operative intervention.? Understands risk benefits complication alternatives surgical nonsurgical treatment options.? Understanding pt risks pt agrees to proceed with surgical intervention. Understanding these risks pt agrees to proceed with surgery.? Consent obtained in office. Procedure: Patient seen evaluate in the preoperative holding area.? Consent was reviewed and signed with patient.? Correct extremity marked.? Patient seen evaluated by anesthesia department once cleared for surgery was then taken back to the operative suite placed in supine position all bony prominences well-padded patient properly secured to bed.? Left upper extremity placed onto armboard.? Nonsterile tourniquet applied Left upper arm.? Patient then underwent anesthesia per the anesthesia department.? Patient's Left upper extremity was then prepped and draped in standard orthopedic fashion.? Final timeout performed.? Patient received appropriate preoperative antibiotics. Esmarch was used exsanguinate the Left upper extremity.? Tourniquet was insufflated to 250 mmHg. A Extensive open?Left carpal tunnel incision was made over previous incision.? Starting distally at Tabor's cardinal line in line with the fourth?ray extending proximally Seth past the wrist crease and into the distal forearm. Sharp scalpel incision was made through skin and subcutaneous tissue.? Self- retaining?retractor was placed and the palmar fascia was identified.? This was then split longitudinally and direct visualization of the recurrent transverse carpal ligament was then made.? I then utilizing scalpel feathered through the transverse carpal ligament until I entered the floor of the transverse carpal tunnel ligament into the carpal tunnel.? Next I switched to dissection scissors and completed my?release of the transverse carpal ligament distally with care to protect the?recurrent motor branch.? I completely?released into the palmar fat and until no entrapment was noted distally.? Care was made to protect the superficial palmar arch during my distal dissection.?? Next I made an incision proximally. Once I had identified the median nerve distally I placed a [place] underneath this and continued to dissect through the transverse carpal ligament proximally. Once the entirety of the carpal tunnel was released and open it was noted there was significant tethering of patient's forearm fascia as well as palmaris longus tendon as result given the tethering of the palmar fascia as well as the median antebrachial fascia I then utilized Littler dissection scissors to excise this into the distal forearm to where there was no further areas of entrapment this completely released the median nerve in this region. This was all performed under direct loupe magnification and patient was found to have a complete lax and fully exposed and decompressed nerve from the Tabor's cardinal line to the distal third of the forearm with no areas of entrapment or tethering. There was hourglass shape of the median nerve showing its compression, The rest of the contents of the carpal tunnel were healthy and intact. No masses were noted.? Tendons appeared healthy.? Wound was then thoroughly irrigated.?This completed the carpal tunnel release and then I subsequently irrigated the wound bed and placed a wet Ray-Chema into the incision for later closure. Next I then proceeded with removal of olecranon orthopedic hardware. Patient had a previous direct posterior incision curving around the olecranon. I utilized his previous incision and extended this as I was planning on performing the cubital tunnel through this incision. I used sharp scalpel incision through skin and then switched to electrocautery for maintaining exact hemostasis throughout my dissection and created full-thickness skin flaps and then subsequently elevated the periosteum over the tension band construct over the olecranon. Immediately on entering the subcutaneous tissue over the olecranon patient was found to have significant olecranon bursitis no signs of infection was noted but significantly hypertrophied and bursal tissue and fluid was noted I then utilized sharp scalpel excision electrocautery to perform complete olecranon bursectomy. Once I created full-thickness fascial flaps over the olecranon bone I then identified the tension band construct. I first clipped to the tension band wiring and this was subsequently removed atraumatically. Next I subsequently pulled the multiple pins which totaled 7 total K wires. 1 of w hich was significantly anterior medial and within the carpal tunnel and appear to be irritating the ulnar nerve. There did not appear to have any transection of the ulnar nerve from this but it was right up against this and near this within the forearm muscle bellies adjacent to the cubital tunnel. I had to make a small split in the triceps tendon to remove the final 2 larger K wires. These all were removed atraumatically and utilized fluoroscopic C arm imaging to confirm all hardware was removed. It was clearly evident this fracture has been completely healed and there was no evidence of nonunion and x-ray confirmed complete removal of all orthopedic hardware within the olecranon. At this point in time I thoroughly irrigated the wound bed and then transitioned to dissection of the cubital tunnel. First I started given there was concern that possibly transposition had occurred where I started and identified the ulnar nerve proximally. This was noted to being significantly enlarged approximately. As result I started my dissection and tracked this distally. It was clearly evident the nerve was not transposed. I then subsequently proceeded with a standard cubital tunnel release. Next I switched to Littler dissection scissors and spread in plane of the medial antebrachial cutaneous nerve branching which was protected throughout this part of the dissection.? Then I directly came down over the fascia and identified the 2 heads of the FCU fascia and split this Left in the middle and subsequently identified my ulnar nerve distally.? This was then completely released distally under direct visualization and loupe magnification.? Once the nerve was then identified I then subsequently tracked this proximally and released this through Robles's ligament as well as complete decompression of the nerve proximally all the way past the intermuscular septum. Once again it was one of the K wire pins noted just distal to Robles's ligament to be irritating the ulnar nerve. The ulnar nerve distally past Robles's was found to be significantly inflamed and smaller in caliber comparative to proximally. Given and clear evidence of entrapment. The nerve was completely released and decompressed both proximally and distally.? Ulnar nerve neurolysis performed and completed both proximally and distally with dissection scissors.? I then took the elbow through range of motion and there was no instability or subluxating of the ulnar nerve.? This completed?cubital tunnel release.? ?Next the wound bed was thoroughly irrigated.? Tourniquet was deflated.? Hemostasis was satisfactory at the?cubital tunnel release surgery site. I then inspected the carpal tunnel incision and this was found to have satisfactory hemostasis and all this was maintained through bipolar electrocautery.? At this point time I sequentially closed?cubital tunnel site with 3-0 Vicryl suture and barbara which patient's states was closed in the past and had done well. The carpal tunnel release surgery was then closed in standard interrupted mattress fashion.? Dressing was Xeroform 4 x 4's ABD Curlex soft roll and an Julian wrap has a bulky soft dressing. Volar splint was applied to the left wrist to protect incision past the wrist crease. patient was then awakened from anesthesia and taken to PACU in stable condition. Disposition: Patient taken to PACU in stable condition recovering well.? Patient will receive appropriate discharge instructions as well as pain medication postoperatively.? We will follow-up with me in the office in 2 weeks. Maintain volar splint until follow-up patient understands agrees with current plan.? All questions answered.? He understands if any questions or concerns and contact the office for follow-up appointment..
[2023-11-18] MEDS: HYDROcodone-acetaminophen 5-325 mg Tablet 1 TAB PO (16:14)
== END 2023-11-18 17:10 | disposition home or self-care (01) ==
PROVIDERS: PCP Family Medicine; Visit Provider Student in an Organized Health Care Education/Training Program
PROC: (CPT 64721; principal; 2023-11-18 12:25)
PROC: (CPT 64718; 2023-11-18 12:25)
DX: G56.02 Carpal tunnel syndrome, left upper limb (principal); T84.84XA Pain due to internal orthopedic prosthetic devices, implants and grafts, initial encounter; Y82.8 Other medical devices associated with adverse incidents; G56.22 Lesion of ulnar nerve, left upper limb; J44.9 Chronic obstructive pulmonary disease, unspecified; I10 Essential (primary) hypertension; E66.01 Morbid (severe) obesity due to excess calories; Z68.36 Body mass index [BMI] 36.0-36.9, adult; F17.210 Nicotine dependence, cigarettes, uncomplicated
CPT/HCPCS: 20680; 24105; 64718; 64721; 73070; 76000; J0131; J0690; J1100; J1170; J1885; J2250; J2405; J2704; J2795; J3010; J3490; J7030

== ENCOUNTER → 2023-12-08 10:34 | Outpatient (BNVA) | payer MEDICARE, SELFPAY | PROVIDERS: PCP Family Medicine; Visit Provider Physician Assistant | DX: G56.22 Lesion of ulnar nerve, left upper limb; T84.84XD Pain due to internal orthopedic prosthetic devices, implants and grafts, subsequent encounter; Y79.2 Prosthetic and other implants, materials and accessory orthopedic devices associated with adverse incidents; Z98.890 Other specified postprocedural states | CPT/HCPCS: 73080; 99024 ==

== ENCOUNTER 2025-08-21 18:00 | Emergency (ER) | payer MEDICARE, SELFPAY ==
[2025-08-21 18:04] VITALS: BP 162/87; PULSE 89; TEMP 36.4; O2SAT 98
--- NOTE | 2025-08-21 18:04 | XRR_ITS ---
PROCEDURE INFORMATION: Exam: XR Chest Exam date and time: 08/21/2025 6:35 PM Age: 55 years old Clinical indication: Shortness of breath; Additional info: Short of breath TECHNIQUE: Imaging protocol: Radiologic exam of the chest. Views: 1 view. COMPARISON: CR XR chest 1V portable [id number] 07/02/2020 1:26 PM FINDINGS: Lungs: Unremarkable. No consolidation. Pleural spaces: Unremarkable. No pleural effusion. No pneumothorax. Heart/Mediastinum: Cardiomegaly. Bones/joints: Unremarkable. XR/XR chest 1V portable [id number] IMPRESSION: Cardiomegaly, negative for infiltrate.
--- OUTSIDE RECORDS SUMMARY | 2025-08-21 18:10 | XMS_ITS | Clinical Summary ---
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 Active escitalopram oxalate (LEXAPRO) 10 mg tablet Take 15 mg by mouth daily. Active OLANZapine (ZyPREXA) 5 mg tablet Take 5 mg by mouth daily at bedtime. Active simvastatin (ZOCOR) 40 mg tablet Take 40 mg by mouth daily at bedtime. Active Iron Polysacch Hrqafne-I24-YP (FERREX 150 FORTE) 150-25-1 mg-mcg-mg Capsule Take 1 Capsule by mouth daily. Patient states no longer taking Active fluticasone propionate (FLONASE) 50 mcg/spray [place], Suspension nasal inhaler Administer 1 [place] in each nostril 2 times daily. Patient states no longer taking Active umeclidinium-vi lanteroL (ANORO ELLIPTA) 62.5-25 mcg/actuation Disk with Device Take 1 Puff by inhalation daily. Active Active Problems Problem Noted Date Diagnosed Date Syncope 07/04/2020 Elevated troponin 07/04/2020 Leukocytosis (leucocytosis) 07/04/2020 Microcytic anemia 07/04/2020 Hyponatremia 07/04/2020 Renal insufficiency 07/04/2020 Family History Medical History Relation Name Comments Heart Disease Mother arrythmia Relation Name Status Comments Mother Social History Tobacco Use Types Packs/Day Years Used Date Smoking Tobacco: Every Day Cigarettes 1 36 Smokeless Tobacco: Never Alcohol Use Standard Drinks/Week Comments Never 0 (1 standard drink = 0.6 oz pur e alcohol) Comments Unknown Sex and Gender Information Value Date Recorded Sex Assigned at Not on file Legal Sex Female 11:16 PM CDT Gender Identity Not on file Sexual Orientation Not on file Last Filed Vital Signs Vital Sign Reading Time Taken Comments Blood Pressure 140/87 07/06/2020 8:51 AM CDT Pulse 70 07/06/2020 8:51 AM CDT Temperature 36.6 C (97.8 F) 07/06/2020 8:51 AM CDT Respiratory Rate 20 07/06/2020 8:51 AM CDT Oxygen Saturation 99% 07/06/2020 8:51 AM CDT Inhaled Oxygen Concentration - - Weight 107.4 kg (236 lb 11.2 oz) 07/06/2020 5:00 AM CDT Height 175.3 cm (5' 9 ) 07/04/2020 10:2 0 PM CDT Body Mass Index 34.95 07/04/2020 10:20 PM CDT Plan of Treatment Health Maintenance Due Date Last Done Comments DTAP/TDAP/TD VACCINES (1 - Tdap) 1987 HEPATITIS B VACCINES (1 of 3 - 19+ 3-dose series) 04/21 ZOSTER VACCINE (1 of 2) 1987 HPV/Cotest (21-29) 1989 CERVICAL CANCER SCREENING 1998 HPV/Cotest (30-65) 1998 PAP SMEAR 1998 BREAST CANCER SCREENING 2008 COLORECTAL SCREENING 2013 Colorectal Cancer Screening 2013 FIT-DNA Q 3 years 2013 FIT/FOBT Q 1 year 2013 Flex Sig/CT Colonography Q 5 years 2013 INFLUENZA VACCINE (#1) 2025 Insurance [employer] [id number] HMO Advance Directives For more information, please contact: [phone] * Full Code (Latest Code Status on File) Date Activated Date Inactivated Comments 07/04/2020 10:49 PM 07/06/2020 7:34 PM Care Teams 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
--- OUTSIDE RECORDS SUMMARY | 2025-08-21 18:10 | XMS_ITS | Clinical Summary ---
Author Organization [facility] Address [address] [place]: Epic Prelude ADT YASMEEN PAREKH [address] Care Team Providers Care Bible Reader Name Role Phone Other, Sgf Primary Care Provider Unavailabl e Allergies No known active allergies Medications hydrOXYchloroQU INE (PLAQUENIL) 200 mg tablet Take 200 mg by mouth 2 times daily. 0 Active Iron Polysacch [id number] (FERREX 150 FORTE) 150-25-1 mg-mcg-mg Capsule Take 1 Capsule by mouth daily. Patient states no longer taking 0 Active fluticasone propionate (FLONASE) 50 mcg/spray [place], Suspension nasal inhaler Administer 1 [place] in each nostril 2 times daily. Patient states no longer taking 0 Active escitalopram oxalate (LEXAPRO) 10 mg tablet Take 15 mg by mouth daily. 0 Active Additional Information Patient taking differently: 20 mgOral DAILY, Reported on 08/22/2024 OLANZapine (ZyPREXA) 5 mg tablet Take 5 mg by mouth daily at bedtime. 0 Active umeclidinium-vi lanteroL (ANORO ELLIPTA) 62.5-25 mcg/actuation Disk with Device Take 1 Puff by inhalation daily. 0 Active simvastatin (ZOCOR) 40 mg tablet Take 40 mg by mouth daily at bedtime. 0 Active Breztri Aerosphere 160 mcg-9mcg-4.8mcg /actuation HFA aerosol inhaler Take by inhalation 2 times daily. Active traMADoL (ULTRAM) 50 mg tablet Take 50 mg by mouth every 6 hours as needed for Pain. Active atorvastatin (LIPITOR) 40 mg tablet Take 40 mg by mouth daily. Active gabapentin (NEURONTIN) 300 mg capsule Take 300 mg by mouth 2 times daily. Active albuterol sulfate HFA 90 mcg/actuation aerosol inhaler Take 2 Puffs by inhalation every 6 hours as needed for Shortness of Breath. Active busPIRone (BUSPAR) 10 mg tablet Take 10 mg by mouth 2 times daily. Active cetirizine (ZyrTEC) 10 mg tablet Take 10 mg by mouth daily. Active Irbesartan (AVAPRO) 300 mg tablet Take 300 mg by mouth daily at bedtime. Active chlorthalidone (HYGROTON) 25 mg tablet Take 25 mg by mouth daily. Active polyethylene glycol 3350 (MIRALAX) 17 gram/dose Powder Take by mouth daily. Dissolve in 8 ounces of fluid and drink entire liquid Active omeprazole (PriLOSEC) 20 mg Capsule, Delayed Release(E.C.) Take 20 mg by mouth daily. Active Active Problems Problem Noted Date Diagnosed Date Syncope 07/04/2020 Microcytic anemia 07/04/2020 Elevated troponin 07/04/2020 Hyponatremia 07/04/2020 Leukocytosis (leucocytosis) 07/04/2020 Renal insufficiency 07/04/2020 Encounters Date Type Department Care Team Description 07/19/2025 External Device Data [facility] ABSTRACTION Provider, Abstract 07/18/2025 External Device Data [facility] ABSTRACTION Provider, Abstract from Last 3 Months Family History Medical History Relation Name Comments Heart Disease Mother arrythmia Relation Name Status Comments Mother Social History Tobacco Use Types Packs/Day Years Used Date Smoking Tobacco: Every Day Cigarettes Smokeless Tobacco: Never Tobacco Cessation:Ready to Q uit: Not Asked; Counseling Given: Not Answered Alcohol Use Standard Drinks/Week Comments Never 0 (1 standard drink = 0.6 oz pur e alcohol) Feeling Safe Answer Date Recorded Are you in a relationship wi th someone who hurts you emotionally and/or physically? No 08/24/2024 Comments Unknown Sex and Gender Information Value Date Recorded Sex Assigned at Not on file Legal Sex Female 1:36 AM [employer] Gender Identity Not on file Sexual Orientation Not on file Last Filed Vital Signs Vital Sign Reading Time Taken Comments Blood Pressure 144/88 08/24/2024 10:00 AM [employer] Pulse 86 08/24/2024 10:00 AM [employer] Temperature 36.3 C (97.3 F) 08/24/2024 9:14 AM [employer] Respiratory Rate 18 08/24/2024 10:00 AM [employer] Oxygen Saturation 96% 08/24/2024 10:00 AM [employer] Inhaled Oxygen Concentration - - Weight 111.1 kg (245 lb) 08/24/2024 6:28 AM [employer] Height 172.7 cm (5' 8 ) 08/24/2024 6:28 AM [employer] Body Mass Index 37.25 08/24/2024 6:28 AM [employer] Plan of Treatment Health Maintenance Due Date Last Done Comments Pre-Diabetes and Diabetes Screening 1968 DTAP/TDAP/TD VACCINES (1 - Tdap) 1987 HEPATITIS [...] years 2013 INFLUENZA VACCINE (#1) 2025 Insurance [place]ICAID [place] Care Teams Bible Reader Relationship Specialty Start Date End Date Other, Sgf NO ADDRESS ON FILE PCP - General 07/04/20
--- OUTSIDE RECORDS SUMMARY | 2025-08-21 18:10 | XMS_ITS | Continuity of Care Document ---
Author Organization [place] - Gregorio Knutson [facility] Haley, LSegundo, [facility] ([facility]) Address [address] [place] [address] Care Team Providers Care Wood Panel Inspector Name Role Phone BRANDIE GUILLEN Primary Care Provider Assessment Encounter Date Assessment Date Assessment LastModified by Organization Details LastModified Time 07/25/2025 07/25/2025 55-year-old fema le with a history of sciatica presenting for immunization and management of chronic left-sided sciatica and weight loss. Interest expressed in pharmacological interventions for weight management. Further evaluation and management of sciatica symptoms are warranted, with consideration of referral for orthopedic assessment and pain management. [email or web address] Not available 07/25/2025 09:29:38 Plan of Treatment Reminders Order Date Submit Date Provider Last Modified By Organization Details Last Modified Time Details Appointments None recorded. Lab None recorded. Referral pain management referral [address], [address], 11:00:29 Procedures None recorded. Surgeries None recorded. Imaging None recorded. Medication Orders Medrol (Ron) 4 mg tablets in a dose pack 2024 025 [facility], [address] [place], [address], 13:57:38 Patient TargetsNo targets recorded. Patient Instructions Encounter Date Encounter Id Patient Instructions Last Modified By Organization Details Last Modified Time 07/25/2025 [id number] - Get the flu sh ot during this visit. - Contact pain management for an evaluation if referred. - Consider starting a steroid medication as advised. - Continue with prescribed exercises for the hip and leg. - Track any changes in symptoms or new symptoms and report them. - Consult on potential nutritional adjustments or diet changes if needed. [email or web address] Not available 07/25/2025 09:29:41 During today's visit, we discussed the plan to administer the influenza vaccination, evaluate the patient's sciatica, and manage symptoms through potential pharmacological and non-pharmacological strategies, including referral to pain management. I explained the benefits and limitations of using GLP-1 receptor agonists for weight management, acknowledging the current challenges with insurance coverage and potential side effects. We also explored the option of a steroid pack to alleviate the patient's current symptoms, prioritizing non-invasive management initially. The patient is encouraged to continue with physical therapy exercises and may consider further consultation if symptoms persist. [email or web address] Not available 07/25/2025 09:29:41 Reason for Referral Pain Management Referral for Sciatica Referring Physician: Brandie Guillen, Family Medicine, Encounter Date: 07/25/2025 Problems Name Problem SNOMED Code Status Onset Date Resolution Date Notes Provider Name and Address Organization Details Recorded Time Arthrode sis Active 2021 S/P ANKLE FUSION; Recorded 07/31/20 9:26AM by Leola Altamirano CMT, Office Visit; Promoted ; acuity set as *; Not Available [facility] 3 03:10:52 Hyperten sive disorder 73735621 Active 2022 HYPERTEN VILMA; Impressi on: controll ed on current meds; Recorded 12/05/19 23 11:35AM by Rose Mahmoodic al Summary; Promoted ; acuity set as *; Not Available [facility] 3 03:10:51 Chronic obstruct odalis pulmonar y disease 63300448 Completed 202212/07/2022 Brandie Guillen MD [address] [place] [address], [phone] , [facility] 3 11:49:03 Chronic pain 96041487 Active 2022 Not Available [facility] 3 16:22:24 Morbid obesity 347820998 Active 2022 Brandie Guillen MD [address] [place] [address], [phone] , [facility] 5 11:42:46 Chronic obstruct odalis pulmonar y disease 96279723 Active 2022 Not Available [facility] 3 16:22:24 [facility] hyperten vilma 38103749 Active 2022 Not Available [facility] 3 16:22:24 Hyperlip idemia 91873860 Active 2022 Not Available [facility] 3 16:22:24 Mixed anxiety and depressi ve disorder 200746383 Active 2022 Not Available [facility] 3 16:22:24 Gastroes ophageal reflux disease 482793834 Active 2022 Not Available [facility] 3 16:22:24 Dental abscess 704212966 Active 2022 Not Available [facility] 3 16:22:24 Insomnia 402145551 Active 2022 Not Available [facility] 3 16:22:24 Seborrhe ic keratosi s 571091434 Active 2022 Brandie Guillen MD [address] [place] [address], [phone] , [facility] 3 10:31:16 Slurred speech 463634086 Active 2022 Brandie Guillen MD [address] [place] [address], [phone] , [facility] 3 12:24:02 Acute exacerba tion of chronic obstruct odalis pulmonar y disease 072710706 Active 2023 Brandie Guillen MD [address] [place] [address], [phone] , [facility] 4 10:11:38 Strain of muscle of chest wall 642140081 Active 2023 Brandie Guillen MD [address] [place] [address], [address] [place] [address] , [facility] 4 10:13:47 Cough 15985669 Active 2023 Brandie Guillen MD [address] [place] [address], [phone] , [facility] 4 10:13:09 Secondar y restless legs syndrome 459975065 Active 2023 Brandie Guillen MD [address] [place] [address], [phone] , [facility] 4 10:13:52 Restless legs syndrome 48213747 Active 2023 Brandie Guillen MD [address] [place] [address], [phone] , [facility] 4 10:14:00 Allergic rhinitis 35283746 Active 2023 Brandie Guillen MD [address] [place] [address], [address] [place] [address] , [facility] 4 10:16:18 Left-radha ed piriform is syndrome 61982481831 9106 Active 2023 Brandie Guillen MD [address] [place] [address], [address] , [facility] 4 10:13:28 Strain of neck muscle 921814541 Active 2023 Brandie Guillen MD [address] [place] [address], [address] [place] [address] , [facility] 4 10:57:05 Hypercho lesterol emia 61399719 Active 2023 Brandie Guillen MD [address] [place] [address] , [facility] 4 10:28:28 Acute maxillar y sinusiti s 94081987 Active 2024 Brandie Guillen MD [address] [place] [address] , [facility] 12:01:04 Candidia sis of vagina 71575729 Active 2024 Brandie Guillen MD [address] [place] [address] , [facility] 12:26:59 Candidia sis of mouth 15738422 Active 2024 Brandie Guillen MD [address] [place], [place] [id number] , [facility] 5 11:57:55 Menopaus al symptom 40043235 Active 2024 Brandie Guillen MD [address] [place] [address] , [facility] 08:41:47 Sciatica 40115589 Active 2024 Brandie Guillen MD [address] [place] [address] , [facility] 16:04:23 Notes:Some problems listed i n Document: #[id number] could not be added to this patient's chart. Please review this document and add these problems to the patient's chart manually as needed. Problem Notes None recorded. Procedures Surgical History Date Name Laterality Status Provider Name and Address Organization Details Recorded Time 05/22/20 Most Recent Mammogram completed DANA CRENSHAW [facility] 12/07/2022 14:27:45 foot manipulation completed DANA DEN YASMEEN [facility] 12/07/2022 14:26:57 Imaging Results None recorded. Procedure Notes None recorded. Medical Equipment None Reported. Allergies No known drug allergies Medications Name Sig Start Date Stop Date Status Note LastModified by Organization Details LastModified Time atorvasta tin 40 mg tablet TAKE 1 TABLET BY MOUTH EVERY DAY 2024 active Not Available Not Available Not Avai lable nystatin 100,000 unit/mL oral suspensio n take 5ml BY MOUTH FOUR TIMES DAILY 04/24 completed Not Available Not Available Not Available doxycycli ne hyclate 100 mg capsule take 1 capsule BY MOUTH TWICE DAILY for 7 days 04/18 completed Not Available Not Available Not Available clindamyc in HCl 300 mg capsule take 1 capsule BY MOUTH EVERY 8 HOURS 07/19 completed Not Available Not Available Not Available albuterol sulfate 2.5 mg/3 mL (0.083 %) solution for nebulizat ion use 1 vial IN NEBULIZE R EVERY 4 HOURS NEEDED active Not Available Not Available No t Available trazodone 50 mg tablet Take 1 tablet every day by oral route. 07/03 completed Not Available Not Available Not Available cetirizin e 10 mg tablet TAKE 1 TABLET BY MOUTH EVERY DAY active Not Available Not Available No t Available azithromy butch 250 mg tablet TAKE 2 TABLETS BY MOUTH TODAY, THEN TAKE 1 TABLET DAILY ON DAYS 2-5 01/17 completed Not Available Not Available Not Available ibuprofen 800 mg tablet TAKE 1 TABLET BY MOUTH EVERY 8 HOURS NEEDED FOR PAIN 04/24 completed Not Available Not Available Not Available fluconazo le 150 mg tablet TAKE 1 TABLET BY MOUTH EVERY 3 DAYS FOR 2 DOSES 01/18 completed Not Available Not Available Not Available benzonata te 200 mg capsule TAKE 1 CAPSULE BY MOUTH TWICE DAILY NEEDED FOR COUGH 10/16 completed Not Available Not Available Not Available hydrocodo ne 5 mg-acetam inophen 325 mg tablet TAKE 1 TABLET BY MOUTH EVERY 6 HOURS NEEDED FOR PAIN FOR UP TO THREE DAYS 10/19 completed Not Available Not Available Not Available prednison e 20 mg tablet TAKE 2 TABLETS BY MOUTH DAILY FOR 5 DAYS 08/04 /2025 completed Not Available Not Available Not Available olanzapin e 5 mg tablet TAKE 1 TABLET BY MOUTH ONCE DAILY FOR 30 DAYS 12/11 completed Not Available Not Available Not Available hydroxyzi ne HCl 50 mg tablet TAKE 1 TABLET BY MOUTH EVERY 6 HOURS NEEDED active Not Available Not Available No t Available phentermi ne 37.5 mg tablet TAKE 1 TABLET BY MOUTH EVERY DAY active Not Available Not Available No t Available chlorthal idone 25 mg tablet TAKE 1 TABLET BY MOUTH EVERY DAY active Not Available Not Available No t Available estradiol -norethin drone acet 1 mg-0.5 mg tablet Take 1 tablet every day by oral route. 04/25 completed Not Available Not Available Not Available olanzapin e 2.5 mg tablet TAKE 1 TABLET BY MOUTH ONCE DAILY FOR 2 WEEKS THEN 2 TABLETS ONCE DAILY 12/11 completed Not Available Not Available Not Available tramadol 50 mg tablet TAKE 1 TABLET BY MOUTH EVERY 6 HOURS active Not Available Not Available No t Available Kenalog 40 mg/mL suspensio n for injection Take 40 mg by injectio n route. 04/18 completed Not Available Not Available Not Available hydrocodo ne 7.5 mg-acetam inophen 325 mg tablet TAKE 1 TABLET BY MOUTH EVERY 6 HOURS NEEDED FOR PAIN for 5 days 01/17 completed Not Available Not Available Not Available buspirone 10 mg tablet TAKE 1 TABLET BY MOUTH TWICE DAILY active Not Available Not Available No t Available gabapenti n 300 mg capsule take 1 capsule BY MOUTH TWICE DAILY 2024 active Not Available Not Available Not Avai lable azelastin e 137 mcg (0.1 %) nasal spray USE TWO SPRAYS in each nostril TWICE DAILY active Not Available Not Available No t Available levofloxa butch 750 mg tablet TAKE 1 TABLET BY MOUTH DAILY 04/24 completed Not Available Not Available Not Available methylpre dnisolone 4 mg tablets in a dose pack Take as directed on package for 6 days active Not Available Not Available No t Available albuterol sulfate HFA 90 mcg/actua tion aerosol inhaler INHALE TWO PUFFS FOUR TIMES DAILY active Not Available Not Available No t Available ondansetr on 4 mg disintegr ating tablet DISSOLVE ONE TABLET ON top of THE TONGUE EVERY 8 HOURS NEEDED FOR NAUSEA AND vomiting FOR THREE DAYS 01/17 completed Not Available Not Available Not Available fluticaso ne propionat e 50 mcg/actua tion nasal spray,sue pension USE 1 SPRAY INTRANSA L EVERY DAY 04/24 completed Not Available Not Available Not Available doxycycli ne hyclate 100 mg tablet TAKE 1 TABLET BY MOUTH TWICE DAILY 04/24 completed Not Available Not Available Not Available irbesarta n 300 mg tablet TAKE 1 TABLET BY MOUTH EVERY DAY active Not Available Not Available No t Available amoxicill in 875 mg-potass ium clavulana te 125 mg tablet TAKE 1 TABLET BY MOUTH EVERY TWELVE HOURS FOR 7 DAYS 10/19 completed Not Available Not Available Not Available escitalop tyrese 10 mg tablet Take 1 tablet every day by oral route. 03/19 completed Not Available Not Available Not Available escitalop tyerse 20 mg tablet TAKE 1 TABLET BY MOUTH EVERY DAY active Not Available Not Available No t Available cyclobenz aprine 5 mg tablet TAKE ONE TABLET THREE TIMES DAILY BY MOUTH 07/19 completed Not Available Not Available Not Available Prempro 0.3 mg-1.5 mg tablet TAKE 1 TABLET BY MOUTH EVERY DAY active Not Available Not Available No t Available chlorhexi dine gluconate 0.12 % mouthwash SWISH AND EXPECTOR ATE 15ML TWICE DAILY 10/19 completed Not Available Not Available Not Available Vitamin D daily 07/03 completed 0; Recorded 11/14/19 23 9:43AM by Dana Crenshaw, Office Visit; Not Available Not Available Not Available doxepin at bedtime 10/16 completed Recorded 11/14/19 23 10:10AM by Brandie Guillen MD, Office Visit; Refill Quantity : 30; Tablet; Not Available Not Available Not Available Ranitidin e Hcl two times daily 07/03 completed 0; Recorded 11/14/19 23 9:43AM by Dana Crenshaw, Office Visit; Not Available Not Available Not Available Lexapro daily 06/14 completed Recorded 11/14/19 23 10:08AM by Brandie Guillen MD, Office Visit; Refill Quantity : 30; Tablet; Not Available Not Available Not Available Breztri Aerospher e 160 mcg-9mcg- 4.8mcg/ac tuation HFA aerosol inhaler INHALE TWO PUFF TWICE DAILY BY INHALATI ON ROUTE active Not Available Not Available No t Available Vitals Date Recorded Body height Body mass index (BMI) Body weight Oxygen saturation Heart rate Respiratory rate Body temperature Systolic And Diastolic Provider Name and Address Organization Details Last Updated DateTime 167.64 cm 38.1 kg/m2 598298. 8 g 97 % 88 /min 18 /min 97.3 [degF] 128/76 mm[Hg] Claribel Ross [facility] 09:03:40 Social History Question Answer Notes LastModified by Organizat ion Details LastModified Time Tobacco Smoking Status Former Smoker January 28, 2025 QUIT Sera Lv azul [facility] 04/24/2025 11:23:40 Do You Have An Advance Directive? No Information not available 12/07/2022 Are You Blind Or Do You Have Difficulty Seeing? No Information not available 12/07/2022 What Is Your Level Of Caffeine Consumption? Moderate 1-4 Times Per Day Information not available 12/07/2022 What Is Your Code Status? Full Code Information not available 12/07/2022 Are You Deaf Or Do You Have Serious Difficulty Hearing? No Information not available 12/07/2022 What Type Of Diet Are You Following? REGULAR Information not available 12/07/2022 Which Of Your Hands Is Dominant? Right Information not available 12/11/2022 What Type Of Marijuana Have You Used? Smoke [email or web address] Information not available 07/25/2025 Do You Or Have You Ever Used Marijuana? Former User [email or web address] Information not available 07/25/2025 What Was The Date Of Your Most Recent Tobacco Screening? 04/24/2025 [email or web address] Information not available 04/24/2025 Was Your Marijuana Use Recreational Or Medical? Recreational [email or web address] Information not available 07/25/2025 Are You Sexually Active? Yes Information not available 12/07/2022 At What Age Did You Start Smoking Tobacco? 13 [email or web address] Information not available 07/25/2025 Are There Any Smokers In Your House? Yes Information not available 12/07/2022 How Much Tobacco Do You Smoke? No Information not available 04/24/2025 How Many Years Have You Smoked Tobacco? 42 Information not available 12/07/2022 Have You Recently Traveled Abroad? No Information not available 12/07/2022 Do You Have Difficulty Walking Or Climbing Stairs? No Information not available 12/07/2022 Do You Have Any Dietary Restrictions? No Information not available 12/07/2022 Sex: Unknown Functional Status Question Answer Note LastModified by Organizat ion Details LastModified Time Do you use any illicit or recreational drugs? No [email or web address] Information not available 10/19/2024 Do you or have you ever used any other forms of tobacco or nicotine? No Information not available 12/07/2022 What is your level of alcohol consumption? None Information not available 12/11/2022 Are you currently employed? Yes Information not available 12/07/2022 Do you have transportation difficulties? No Information not available 12/07/2022 Are you able to walk independently without assistance or assistive devices? [email or web address] Information not available 12/07/2022 Do you have difficulty doing errands alone? No Information not available 12/07/2022 Are you able to care for yourself independently? Yes Information not available 12/07/2022 Do you have difficulty dressing, bathing, grooming, or toileting? No Information not available 12/07/2022 Mental Status Question Answer Note LastModified by Organization D etails LastModified Time Do you have difficulty concentrating, remembering or making decisions? No Information no t available 12/07/2022 Family History Nothing Reported Notes:Father; Essential Hype rtension, Skin Cancer, Hypercholesterolemia, Heart disease in female family member before age 65, Arthritis, Hypertension, Heart disease in male family member before age 55, Cancer, Depression Medical History No medical history recorded. Gynecological History Statement/Question Response Most Recent Mammogram 05/22/2022 Obstetrics History GPAL:G 0 P 0 0 0 0 Immunizations Vaccine Type Date Status Note Provider Nam e and Address Organization Details Recorded Time Tdap 3 completed Brandie Guillen MD [address] [place], [address], [facility] 03/19/2023 17:12:52 Pneumococcal conjugate PCV20, polysaccharide UUA007 conjugate, adjuvant, PF 3 completed Brandie Guillen MD [address] [place] [address], [phone], [facility] 03/19/2023 17:12:52 Influenza, split virus, trivalent, PF 5 completed Brandie Guillen MD [address] [place] [address], [phone], [facility] 07/25/2025 09:23:41 COVID-19, mRNA, LNP-S, PF, 100 mcg/0.5mL dose or 50 mcg/0.25mL dose 2 completed DANA azul [facility] 06/14/2023 17:29:50 COVID-19, mRNA, LNP-S, PF, 100 mcg/0.5mL dose or 50 mcg/0.25mL dose 1 completed DANA azul [facility] 06/14/2023 17:29:50 COVID-19, mRNA, LNP-S, PF, 100 mcg/0.5mL dose or 50 mcg/0.25mL dose 1 completed DANA azul [facility] 06/14/2023 17:29:50 pneumococcal polysaccharide PPV23 7 completed DANA azul [facility] 06/14/2023 17:29:50 Influenza, split virus, quadrivalent, PF 7 completed DANA azul [facility] 06/14/2023 17:29:50 Influenza, split virus, quadrivalent, PF 3 completed DANA azul [facility] 06/19/2023 10:34:53 Past Encounters Encounter ID Performer Location Encounter Start Date Encounter Closed Date Diagnosis/Indication Diagnosis SNOMED-CT Code Diagnosis ICD10 Code Diagnosis IMO Codes Diagnosis Note [id number] Brandie Guillen MD [facility] ([facility]) [address] [place] [address] 07/25/2025 08:51:28 07/25/2025 09:58:40 Requires influenza virus vaccination 161623135 Z23 6997930 - Influenza vaccinatio n to be administer ed as per patient request. Sciatica 31764563 M54.32 51040787 - Referral to pain management for evaluation of potential injection therapy.- Steroid pack considered for initial management .- Recommende d continuati on of prescribed exercises. Health Concerns Section Related Observation LastModified by Organization Detai ls LastModified Time None Recorded Concern Status LastModified by Organization Details LastModified Time None Recorded Payers Encounter Date Sequence Insurance Name Policy Number Policy Chambers Covered Member ID Chambers Member ID Guarantor Name 07/25/2025 1 [employer] [id number] Deandra Bro [id number] Deandra Bro Notes Date Note Type Note Provider Name and Address Organization Details Recorded Time 07/25/2025 text/html The patient is a 55-year-old female presenting with a request for an influenza virus vaccination and management of sciatica. She has experienced significant weight loss of 18 pounds since her last visit three months ago, and is interested in discussing GLP-1 receptor agonists for weight management. She also reports persistent hip pain radiating down her leg, associated with sciatica, and seeks a referral for possible pain-relieving hip injections. Brandie Guillen MD [address] [place] [address], [phone], [facility] 07/25/2025 16:10:29 OBGyn Episode No OBEpisode recorded.
--- OUTSIDE RECORDS SUMMARY | 2025-08-21 18:11 | XMS_ITS | Data Portability ---
Author Organization YASMEEN Gregorio De Los Santos [facility] Address [address] [facility] [address] [place] [address] Care Team Providers Care Thread Weaver Name Role Phone BRANDIE GUILLEN Primary Care Provider [phone] Assessment Encounter Date Assessment Date Assessment LastModified [...] Modified Time Details Appointments None recorded. Lab CMP, serum or plasma 2024 025 [facility], [address], [place], [address], 12:41:59 lipid panel, blood 2024 025 [facility], [address], [place], [address], 12:42:02 CBC 2024 025 [facility], [address] [facility] [address], [place], [address], 01/29/202 5 11:24:58 Referral pain management referral 2024 patria Brown DO, [address] [place] [address], [address], 11:00:29 Procedures None recorded. Surgeries None recorded. Imaging None recorded. Medication Orders Medrol (Ron) 4 mg tablets in a dose pack [address], [address], 13:57:38 phentermin e 37.[address] [facility], [address] [place] [address], [address], 13:41:12 estradiol- norethindr one acet 1 mg-0.[address] [facility], [address] [place] [address], [address], 09:24:48 azelastine 137 mcg (0.1 %) nasal spray [address], [address], 17:56:59 nystatin 100,000 unit/mL oral suspension [address], [address], 11:33:43 doxycyclin e hyclate 100 mg tablet [address], [address], 11:33:42 tramadol 50 mg tablet [address], [address], 12:12:48 tramadol 50 mg tablet [address], [address], 12:51:13 cetirizine 10 mg tablet [address], [address], 11:25:59 irbesartan 300 mg tablet [address], [address], 12:28:00 buspirone 10 mg tablet [address], [address], 11:25:55 levofloxac in 750 mg tablet [address], [address], 11:23:46 Patient TargetsNo targets recorded. Patient Instructions Encounter Date Encounter Id Patient Instructions Last Modified By Organization Details Last Modified Time 07/25/2025 [id number] - Get the flu sh ot during [...] Brandie Guillen, Family Medicine, Encounter Date: 07/25/2025 Results Created Date Observation Date Name Description Value Unit Range Abnormal Flag Note LastModifiedBy Organization Detail LastModifiedTime 10/19/1910/19/2024 CBC WBC 7.4 x10 4.0-10 .5 Not Available [facility] [address] [facility] [address], [place], [address], 10/19/2024 11:24:58 10/19/1910/19/2024 CBC RBC 4.40 x10 3.50-5 .50 Not Available [facility] [address] [facility] [address], [place], [address], 10/19/2024 11:24:58 10/19/1910/19/2024 CBC HGB 13.2 g/dL 12.0-1 6.0 Not Available [facility] [address] [facility] [address], [place], [address], 10/19/2024 11:24:58 10/19/1910/19/2024 CBC HCT 37.8 % 37.0-4 7.0 Not Available [facility] [address] [facility] [address], [place], [address], 10/19/2024 11:24:58 10/19/1910/19/2024 CBC MCV 85.9 fL 80.0-9 9.9 Not Available [facility] [address] [facility], [place], [address], 10/19/2024 11:24:58 10/19/19 25 10/19/2024 CBC MCH 30.1 pg 27.0-3 2.0 Not Available [facility] [address] [facility] [address], [place], [address], 10/19/2024 11:24:58 10/19/19 25 10/19/2024 CBC MCHC 35.0 g/dL 32.0-3 6.0 Not Available [facility] [address] [facility] [address], [place], [address], 10/19/2024 11:24:58 10/19/19 25 10/19/2024 CBC RDW 14.9 % 11.5-1 4.5 high Not Available [facility] [address] [address], [place], [address], 10/19/2024 11:24:58 10/19/19 25 10/19/2024 CBC plt 396.5 x10 140.0- 451.0 Not Available [facility] [address] [facility] [address], [place], [address], 10/19/2024 11:24:58 10/19/1910/19/2024 CBC lymphocytes % 19.2 % 20.0-5 0.0 low Not Available [facility] [address] [facility] [address], [place], [address], 10/19/2024 11:24:58 10/19/19 25 10/19/2024 CBC granulcytes % 69.7 % 30.0-7 0.0 Not Available [facility] [address] [address], [place], [address], 10/19/2024 11:24:58 10/19/19 25 10/19/2024 CBC monocytes % 9.7 % 2.0-16 .0 Not Available [facility] [address] [address], [place], [address], 10/19/2024 11:24:58 10/19/19 25 10/19/2024 CBC granulcytes# 5.2 x10 Not Cher ilable [facility] [address] [address], [place], [address], 10/19/2024 11:24:58 10/19/19 25 10/19/2024 CBC lymphocytes # 1.4 x10 Not Available [facility] [address] [address], [place], [address], 10/19/2024 11:24:58 10/19/19 25 10/19/2024 CBC monocytes # 0.7 x10 Not Avai lable [facility] [address] [address], [place], [address], 10/19/2024 11:24:58 10/19/1910/19/2024 CMP (FEMA LE) glucose 93.0 mg/dL 60.0-9 9.0 Not Available [facility] [address] [address], [place], [address], 10/19/2024 12:41:59 10/19/19 25 10/19/2024 CMP (FEMA LE) BUN (blood urea nitrogen) 9.0 mg/dL 10.0-2 6.0 low Not Available [facility] [address] [address], [place], [address], 10/19/2024 12:41:59 10/19/19 25 10/19/2024 CMP (FEMA LE) creatinine (serum) 1.0 mg/dL 0.4-1. 5 Not Available [facility] [address] [address], [place], [address], 10/19/2024 12:41:59 10/19/19 25 10/19/2024 CMP (FEMA LE) BUN/creatini ne ratio 9.00 ratio Not Available [facility] [address] [facility], [place], [address], 10/19/2024 12:41:59 10/19/19 25 10/19/2024 CMP (FEMA LE) eGFR calculated 61.0 Not Available [facility] [address] [facility], [place], [address], 10/19/2024 12:41:59 10/19/19 25 10/19/2024 CMP (FEMA LE) total protein 7.7 g/dL 6.0-8. 5 Not Available [facility] [address] [facility], [place], [address], 10/19/2024 12:41:59 10/19/19 25 10/19/2024 CMP (FEMA LE) total bilirubin 0.4 mg/dL 0.2-1. 3 Not Available [facility] [address] [facility], [place], [address], 10/19/2024 12:41:59 10/19/19 25 10/19/2024 CMP (FEMA LE) albumin 4.2 g/dL 3.5-5. 5 Not Available [facility] [address] [facility], [place], [address], 10/19/2024 12:41:59 10/19/19 25 10/19/2024 CMP (FEMA LE) globulin 3.5 calc Not Available [facility] [address] [facility], [place], [address], 10/19/2024 12:41:59 10/19/19 25 10/19/2024 CMP (FEMA LE) AST (SGOT) 26.0 U/L 0.0-46 .0 Not Available [facility] [address] [address], [place], [address], 10/19/2024 12:41:59 10/19/19 25 10/19/2024 CMP (FEMA LE) altv (SGPT) 23.0 U/L 13.0-6 9.0 normal Not Available [facility] [address] [address], [place], [address], 10/19/2024 12:41:59 10/19/1910/19/2024 CMP (FEMA LE) A/G ratio 1.2 ratio Not Available [facility] [address] [address], [place], [address], 10/19/2024 12:41:59 10/19/19 25 10/19/2024 CMP (FEMA LE) ALP phos 142.0 U/L 30.0-1 40.0 abnormal Not Available [facility] [address] [address], [place], [address], 10/19/2024 12:41:59 10/19/19 25 10/19/2024 CMP (FEMA LE) calcium 9.5 mg/dL 8.4-10 .5 Not Available [facility] [address] [address], [place], [address], 10/19/2024 12:41:59 10/19/19 25 10/19/2024 CMP (FEMA LE) sodium 130.0 mmol/ L 136.0- 145.0 low Not Available [facility] [address] [address], [place], [address], 10/19/2024 12:41:59 10/19/19 25 10/19/2024 CMP (FEMA LE) potassium 4.4 mmol/ L 3.5-5. 1 Not Available [facility] [address] [facility] [address], [place], [address], 10/19/2024 12:41:59 10/19/19 25 10/19/2024 CMP (FEMA LE) chloride 92.0 mmol/ L 98.0-1 10.0 abnormal Not Available [facility] [address] [address], [place], [address], 10/19/2024 12:41:59 10/19/19 25 10/19/2024 CMP (FEMA LE) C02 29.0 mmol/ L 22.0-3 1.0 Not Available [facility] [address] [address], [place], [address], 10/19/2024 12:41:59 10/19/19 25 10/19/2024 CMP (FEMA LE) anion gap 9.0 calc Not Available [facility] [address] [address], [place], [address], 10/19/2024 12:41:59 10/19/19 25 10/19/2024 CMP (FEMA LE) osmolality 267.7 calc Not Available [facility] [address] [address], [place], [address], 10/19/2024 12:41:59 10/19/19 25 10/19/2024 LIPID PROFI LE (FEMA LE) cholesterol 172.0 mg/dL 0.0-20 0.0 Not Available [facility] [address] [address], [place], [address], 10/19/2024 12:42:02 10/19/19 25 10/19/2024 LIPID PROFI LE (FEMA LE) trig 179.0 mg/dL 0.0-15 0.0 high Not Available [facility] [address] [address], [address], 10/19/2024 12:42:02 10/19/19 25 10/19/2024 LIPID PROFI LE (FEMA LE) HDL - direct 57.0 mg/dL >40.0 Not Available [facility] [address] [facility] [address], [place], [address], 10/19/2024 12:42:02 10/19/1910/19/2024 LIPID PROFI LE (FEMA LE) VLDL - direct 35.8 mg/dL Not Available [facility] [address] [facility] [address], [place], [address], 10/19/2024 12:42:02 10/19/1910/19/2024 LIPID PROFI LE (FEMA LE) LDL - direct 79.2 mg/dL 0.0-13 0.0 Not Available [facility] [address] [facility] 1, [place], [address], 10/19/2024 12:42:02 Result Notes None recorded. Problems Name Problem SNOMED Code Status Onset Date Resolution Date Notes Provider Name and Address Organization Details Recorded Time Arthrode sis Active 2021 S/P ANKLE FUSION; Recorded 07/31/20 9:26AM by Leola Altamirano CMT, Office Visit; Promoted ; acuity set as *; Not Available [facility] 03:10:52 Hyperten sive disorder 29010019 Active 2022 HYPERTEN VILMA; Impressi on: controll ed on current meds; Recorded 12/05/19 23 11:35AM by Dana Pollock, Roseic al Summary; Promoted ; acuity set as *; Not Available [facility] 03:10:51 Chronic obstruct odalis pulmonar y disease 29697070 Completed 202212/07/2022 Brandie Guillen MD [address] [place], [address] , [facility] 3 11:49:03 Chronic pain 31579822 Active 2022 Not Available [facility] 3 16:22:24 Morbid obesity 985548029 Active 2022 Brandie Guillen MD [address] [place], [address] , [facility] 5 11:42:46 Chronic obstruct odalis pulmonar y disease 04581274 Active 2022 Not Available [facility] 3 16:22:24 [facility] hyperten vilma 31442052 Active 2022 Not Available [facility] 3 16:22:24 Hyperlip idemia 47189128 Active 2022 Not Available [facility] 3 16:22:24 Mixed anxiety and depressi ve disorder 702290120 Active 2022 Not Available [facility] 3 16:22:24 Gastroes ophageal reflux disease 412437329 Active 2022 Not Available [facility] 3 16:22:24 Dental abscess 228486601 Active 2022 Not Available [facility] 3 16:22:24 Insomnia 907762819 Active 2022 Not Available [facility] 3 16:22:24 Seborrhe ic keratosi s 847519704 Active 2022 Brandie Guillen MD [address] [place] [address], [address] , [facility] 3 10:31:16 Slurred speech 687231107 Active 2022 Brandie Guillen MD [address] [place] [address], [address] , [facility] 3 12:24:02 Acute exacerba tion of chronic obstruct odalis pulmonar y disease 700144835 Active 2023 Brandie Guillen MD [address] [place] [address], [address] , [facility] 4 10:11:38 Strain of muscle of chest wall 007126874 Active 2023 Brandie Guillen MD [address] [place] [address], [address] , [facility] 4 10:13:47 Cough 94758866 Active 2023 Brandie Guillen MD [address] [place] [address], [address] , [facility] 4 10:13:09 Secondar y restless legs syndrome 049485645 Active 2023 Brandie Guillen MD [address] [place] [address], [address] , [facility] 4 10:13:52 Restless legs syndrome 62619464 Active 2023 Brandie Guillen MD [address] [place] [address], [address] , [facility] 10:14:00 Allergic rhinitis 69477921 Active 2023 Brandie Guillen MD [address] [place] [address], [address] , [facility] 4 10:16:18 Left-radha ed piriform is syndrome 01643585259 9106 Active 2023 Brandie Guillen MD [address] [place] [address], [address] , [facility] 4 10:13:28 Strain of neck muscle 608459238 Active 2023 Brandie Guillen MD [address] [place] [address], [address] , [facility] 4 10:57:05 Hypercho lesterol emia 96178223 Active 2023 Brandie Guillen MD [address] [place] [address], [address] , [facility] 4 10:28:28 Acute maxillar y sinusiti s 08386334 Active 2024 Brandie Guillen MD [address] [place] [address], [address] , [facility] 5 12:01:04 Candidia sis of vagina 55774286 Active 2024 Brandie Guillen MD [address] [place] [address], [address] , [facility] 5 12:26:59 Candidia sis of mouth 53214089 Active 2024 Brandie Guillen MD [address] [place] [address], [address] , [facility] 5 11:57:55 Menopaus al symptom 80701423 Active 2024 Brandie Guillen MD [address] [place] [address], [address] , [facility] 5 08:41:47 Sciatica 90104044 Active 2024 Brandie Guillen MD [address] [place] [address], [address] , [facility] 5 16:04:23 Notes:Some problems listed i n Document: #[id number] could not be added to this patient's chart. Please review this document and add these problems to the patient's chart manually as needed. Problem Notes None recorded. Procedures Surgical History Date Name Laterality Status Provider Name and Address Organization Details Recorded Time 05/22/20 22 Most Recent Mammogram completed [facility] [place] 12/07/2022 14:27:45 foot manipulation completed [facility] [place] 12/07/2022 14:26:57 Imaging Results None recorded. Procedure [...] TABLETS BY MOUTH DAILY FOR 5 DAYS 04/24 completed Not Available Not Available Not [...] Available Not Available Not Available escitalop tyrese 20 mg tablet TAKE 1 TABLET BY [...] 0; Recorded 11/14/19 23 9:43AM by Dana Pollock, Office Visit; Not Available Not Available Not Available doxepin at bedtime 10/16 completed Recorded 11/14/19 23 10:10AM by Brandie Guillen MD, Office Visit; Refill Quantity : 30; Tablet; Not Available Not Available Not Available Ranitidin e Hcl two times daily 07/03 completed 0; Recorded 11/14/19 23 9:43AM by Dana Pollock, Office Visit; Not Available Not Available Not Available Lexapro daily 06/14 completed Recorded 11/14/19 23 10:08AM by Brandie Guillen MD, Office Visit; Refill Quantity : 30; Tablet; Not Available Not Available Not Available Fartun Aerospher e 160 mcg-9mcg- 4.8mcg/ac tuation HFA aerosol inhaler INHALE TWO PUFF TWICE DAILY BY INHALATI ON ROUTE active Not Available Not Available No t Available Vitals Date Recorded Body height Body mass index (BMI) Body weight Oxygen saturation Heart rate Body temperature Respiratory rate Systolic And Diastolic Provider Name and Address Organization Details Last Updated DateTime 5 167.64 cm 39.9 kg/m2 123897. 32 g 97 % 79 /min 97.6 [degF] 20 /min 130/82 mm[Hg] [facility] 5 09:58:06 Date Recorded Body height Body mass index (BMI) Body weight Body temperature Oxygen saturation Heart rate Systolic And Diastolic Provider Name and Address Organization Details Last Updated DateTime 5 167.64 cm 38.5 kg/m2 251065. 78 g 97.3 [degF] 95 % 71 /min 118/70 mm[Hg] MAITE [facility] 5 11:08:50 Date Recorded Body height Body mass index (BMI) Body weight Body temperature Heart rate Oxygen saturation Systolic And Diastolic Provider Name and Address Organization Details Last Updated DateTime 5 167.64 cm 41 kg/m2 456336. 46 g 97.6 [degF] 79 /min 97 % 116/76 mm[Hg] [facility] 5 11:11:41 Date Recorded Body height Body mass index (BMI) Body weight Oxygen saturation Heart rate Respiratory rate Body temperature Systolic And Diastolic Provider Name and Address Organization Details Last Updated DateTime 5 167.64 cm 38.1 kg/m2 589467. 8 g 97 % 88 /min 18 /min 97.3 [degF] 128/76 mm[Hg] [facility] 5 09:03:40 Social History Question Answer Notes LastModified by Organizat ion Details LastModified Time Tobacco Smoking Status Former Smoker January 28, 2025 QUIT , [place] 04/24/2025 11:23:40 Do You Have An Advance [...] Type Of Marijuana Have You Used? Smoke [email or web address] Information not available 07/25/2025 Do You Or Have You Ever Used Marijuana? Former User [email or web address] Information not available 07/25/2025 What Was The Date Of Your Most Recent Tobacco Screening? 04/24/2025 [email or web address] Information not available 04/24/2025 Was Your Marijuana Use Recreational Or Medical? Recreational [email or web address] Information not available 07/25/2025 Are You Sexually Active? Yes Information not available 12/07/2022 At What Age Did You Start Smoking Tobacco? 13 [email or web address] Information not available 07/25/2025 Are There Any [...] use any illicit or recreational drugs? No [email or web address] Information not available 10/19/2024 Do you or [...] Time Tdap 3 completed Brandie Guillen MD [address] [place] [address], [address], [facility] 03/19/2023 17:12:52 Pneumococcal conjugate PCV20, polysaccharide OOQ603 conjugate, adjuvant, PF 3 completed Brandie Guillen MD [address] [place] [address], [address], [facility] 03/19/2023 17:12:52 Influenza, split virus, trivalent, PF 5 completed Brandie Guillen MD [address] [place] [address], [address], [facility] 07/25/2025 09:23:41 COVID-19, mRNA, LNP-S, PF, 100 mcg/0.5mL dose or 50 mcg/0.25mL dose 2 completed DANA azul [facility] 06/14/2023 17:29:50 COVID-19, mRNA, LNP-S, PF, 100 mcg/0.5mL dose or 50 mcg/0.25mL dose 1 completed DANA BYRNESG jorge alberto, [facility] 06/14/2023 17:29:50 COVID-19, mRNA, LNP-S, PF, 100 mcg/0.5mL dose or 50 mcg/0.25mL dose 1 completed DANA azul [facility] 06/14/2023 17:29:50 pneumococcal polysaccharide PPV23 7 completed DANA azul, [facility] 06/14/2023 17:29:50 Influenza, split virus, quadrivalent, PF 7 completed DANA azul, [facility] 06/14/2023 17:29:50 Influenza, split virus, quadrivalent, PF 3 completed DANASA DEN azul, [facility] 06/19/2023 10:34:53 Past Encounters Encounter ID Performer Location Encounter Start Date Encounter Closed Date Diagnosis/Indication Diagnosis SNOMED-CT Code Diagnosis ICD10 Code Diagnosis IMO Codes Diagnosis Note [id number] [facility] ([facility]) [address] [place] [address] 12/11/2022 10:42:09 12/17/2022 15:01:01 Renewal of prescription 110638650 Z76.0 Anxiety 87164020 F41.9 we will increase dose of lexapro to help better manage symptoms Chronic pain 35256073 G8 9.29 Morbid obesity 665744664 E66.01 Chronic ob structive pulmonary disease 25692271 J44.1 Essential hypertension 59249986 I10 controlled on current meds Hyperlipidemia 69643678 E78.5 Mixed anxi ety and depressive disorder 503479088 F41.8 continue pharmacoth erapy Tobacco user 397049231 Z 72.0 Gastroesop hageal reflux disease 495004650 K21.[id number] [facility] ([facility]) [address] [place] [phone] 12/30/2022 09:13:07 12/30/2022 14:44:37 Chronic obstructive pulmonary disease 49049021 J44.1 Stable, no inhalers used routinely at this time. Morbid obesity 616368697 E66.01 Discussed diet and exercise. [id number] [facility] ([facility]) [address] [place] [phone] 03/19/2023 10:23:47 03/19/2023 12:24:25 Chronic obstructive pulmonary disease 97965468 J44.1 Continue to use albuterol as needed. May need to consider daily preventati ve medication . We will monitor symptoms at this time. We will administer Prevnar 20 today. Chronic pain 29589031 G8 9.29 Pain controlled on tramadol. Administra tion of tetanus vaccine 719374989 Z23 Mixed anxi ety and depressive disorder 864989418 F41.8 continue pharmacoth erapy Dental abscess 632432624 K04.7 Discussed clindamyci n as well for infection. Encouraged dental hygiene as possible. Maintain dental follow-up. Insomnia 079019545 G47.0 0 The patient has been having trouble sleeping so we will start trazodone today. Great Essential hypertension 18591072 I10 controlled on current meds [id number] Brandie Guillen MD [facility] ([facility]) [address] [place] [id number] 06/19/2023 10:15:54 06/19/2023 12:39:10 Seborrheic keratosis 794829095 L82.1 Lesions on her legs were seborrheic keratosis. Patient was reassured. Anxiety 93248621 F41.9 Doing better on the higher dose of Lexapro. Essential hypertension 40556256 I10 controlled on current meds. Check routine labs today. Chronic pain 82185518 G8 9.29 Pain controlled on tramadol. Obesity 922603641 E66.9 Encouraged healthy eating, weight loss, and daily exercise. Check lipid panel [id number] Brandie Guillen MD [facility] ([facility]) [address] [place] [id number] 07/03/2023 11:57:11 07/03/2023 12:33:54 Slurred speech 113042243 R47.81 No obvious cause determined from exam today. We will start work-up with MRI and ultrasound . Patient abnormal lab work recently. We will also go ahead and start on a referral to neurology. Patient may need EEG. [id number] Brandie Guillen MD [facility] ([facility]) [address] [place] [id number] 07/14/2023 10:50:57 07/14/2023 15:50:[id number] [facility] ([facility]) [address] [place] [phone] 10/16/2023 09:40:36 10/16/2023 13:08:52 Renewal of prescription 787659470 Z76.0 Acute exac erbation of chronic obstructive pulmonary disease 435349321 J44.1 Concern of the patient has had an exacerbati on of COPD. Start prednisone and Doxy. Continue as needed albuterol. Chronic ob structive pulmonary disease 91183516 J44.1 Patient is not likely to be well-contr olled at baseline. Discussed starting Breztri and the patient was agreeable. Strain of muscle of chest wall 015691590 S29.011A Continue home pain medication s and we will add muscle relaxer. Discussed using warm moist heat to the affected area. Chronic pain 03823482 G8 9.29 Anxiety 67184485 F41.9 Controlled Essential hypertension 49342605 I10 Controlled Anxiety disorder 9312228 06 F41.9 Tobacco user 315267701 Z 72.0 [id number] Brandie Guillen MD [facility] ([facility]) [address] [place] [address] [phone] 01/18/2024 09:54:33 01/18/2024 10:57:30 Cough [id number] R05.9 Restless l egs syndrome [id number] G25.81 Will start with gabapentin at night and see if this helps improves her symptoms. Acute exac erbation of chronic obstructive pulmonary disease [id number] J44.1 Exam is concerning for COPD exacerbati on. Underlying allergies is likely the inciting trigger. Will treat her with steroids and antibiotic s today. Start treatment for allergies as below. Allergic rhinitis 318508 04 J30.9 [id number] [address] [facility] ([facility]) [address] [place] [address] [phone] 02/23/2024 09:50:47 02/23/2024 10:32:33 Left-sided piriformis syndrome [id number] 68112 M54.32 Exam is suggestive of some piriformis send cerumen mute contributi ng to the patient's symptoms. Patient requested steroid injection and this was provided for the patient. Will also start her on exercises, however symptoms do not improve she is to notify the office so we can proceed with physical therapy or further imaging. Dental abscess [id number] K04.7 Multiple dental caries and swelling suggestive of abscess. Strain of neck muscle 36 [id number] S16.1XXA She likely had muscle spasm on the right side of her neck as that is consistent with the patient's history and exam today. Discussed neck stretching , warm moist heat, and topicals to help with pain. [id number] Brandie Guillen MD [facility] ([facility]) [address] [place] [address] [phone] 04/18/2024 10:03:05 04/18/2024 10:35:46 Anxiety 56846620 F41.9 We will start buspirone in hopes to help control her anxiety. Chronic pain 53317041 G8 9.29 Chronic ob structive pulmonary disease 56859592 J44.1 Was provided samples for [employer] to help her until she is able to afford her co-pay. Hyperlipidemia 08974611 E78.5 Essential hypertension 05910692 I10 Controlled [id number] Brandie Guillen MD [facility] ([facility]) [address] [place] [address] [phone] 07/19/2024 09:51:45 07/19/2024 10:28:00 Dental abscess [id number] K04.7 Will treat with antibiotic s. Encouraged patient to try to do good oral care until appointmen t in August. Chronic pain 34007091 G8 9.29 Doing well with tramadol. Restless l egs syndrome 18049125 G25.81 Managed with current medication s Hypercholesterolemia 136 56879 E78.00 Tolerating statin without any difficulti es Essential hypertension 83339327 I10 Controlled Chronic ob structive pulmonary disease 42384908 J44.1 Doing better with Breztri. Ample provided to help alleviate some of the cost from her co-pay. [id number] Brandie Guillen MD [facility] ([facility]) [address] [place] [address] [phone] 10/19/2024 09:50:27 10/19/2024 11:06:34 Chronic obstructive pulmonary disease 57396744 J44.1 doing well on breztri Essential hypertension 35427979 I10 Controlled Chronic pain 70159359 G8 9.29 Doing well with tramadol. Acute maxi llary sinusitis 82260047 J01.00 Likely bacterial sinusitis based on exam and history. discussed supportive care including OTC meds and sinus rinses. we will start abx. Anxiety 43102393 F41.9 Continue buspirone Allergic rhinitis 477775 04 J30.9 [id number] [address] Gu[address] [facility] ([facility]) [address] [place] [address] [phone] 01/18/2025 09:47:23 01/18/2025 14:02:35 Chronic obstructive pulmonary disease 34256583 J44.1 Complete entire course of antibiotic s and steroids. Continue Breztri. Will send order for nebulizer and medication s to see if this helps response to the albuterol. May consider pulmonolog y referral if it does not. Chronic pain 91184788 G8 9.29 Doing well with tramadol. Essential hypertension 14450965 I10 Controlled [id number] Brandie Guillen MD [facility] ([facility]) [address] [place] [address] [phone] 02/03/2025 10:58:58 02/03/2025 13:01:12 Candidiasis of mouth 04172160 B37.0 [id number] Concerned that the rash inside the mouth is consistent with thrush. Start nystatin. Encouraged patient to rinse out mouth after Breztri. Allergic rhinitis 005968 04 J30.9 Will add acetylcyst eine to her allergy treatment and see if this improves her allergy control as this is likely contributi ng to the patient's symptoms. Acute maxi llary sinusitis 45259697 J01.00 [id number] Likely bacterial sinusitis based on exam and history. discussed supportive care including OTC meds and sinus rinses. we will start abx. [id number] Brandie Guillen MD [facility] ([facility]) [address] [place] [address] [phone] 04/24/2025 11:03:20 04/24/2025 13:06:00 Postmenopausal state 37363799 Z78.0 [id number] Discussed treatment for postmenopa usal symptoms and the patient would like to proceed. Patient needs to be on a combinatio n estrogen and progestero ne medication . Morbid obesity 448053154 E66.01 72006 The patches the patient was referring to are over-the-c ounter patches that states it increases GLP-1. Recommend the patient avoid these as they are not likely to be effective. Discussed other options to help manage her weight and the patient was open to starting phentermin e. Essential hypertension 74483821 I10 Controlled Chronic ob structive pulmonary disease 91240162 J44.1 Recommend the patient try Breztri with a spacer and see if this improves its effectiven ess. [id number] Brandie Guillen MD [facility] ([facility]) [address] [place] [address] [phone] 07/25/2025 08:51:28 07/25/2025 09:58:40 Requires influenza virus vaccination 304146388 Z23 [id number] - Influenza vaccinatio n to be administer ed as per patient request. Sciatica 39035755 M54.32 [id number] - Referral to pain management for evaluation of potential injection therapy.- Steroid pack considered for initial management .- Recommende d continuati on of prescribed exercises. Health Concerns Section Related Observation LastModified by Organization Detai ls LastModified Time None Recorded Concern Status LastModified by Organization Details LastModified Time None Recorded Advance Directives Directive N: Payers Insurance Date Sequence Insurance Name Policy Number Policy Chambers Covered Member ID Chambers Member ID Guarantor Name 07/25/2025 1 [place] [id number] Deandra Bro [id number] Deandra Bro 07/25/2025 1 [facility] (MEDICARE REPLACEMENT/A DVANTAGE - HMO) [id number] Deandra Bro [id number] Deandra Bro Notes Date Note Type Note Provider Name and Address Organization Details Recorded Time 10/19/19 25 text/htm l Hypertension IM/FMReported by PatientHPIFor quality, patient reportshere for check-up. COPDReported by Patient This is a 54-year-old female comes in today for evaluation. Patient needs refills on several medications. Patient reports that her chronic medical issues are stable on current medications. The patient is due for routine lab work. Patient also has concerns for sinus infection. Patient recently had all of her teeth removed. Patient has noticed increasing facial pain and pressure. Patient is also significant significant nasal discharge. Brandie Guillen MD [address] [place] [address], [phone], [facility] 10/22/2024 23:23:16 01/19/20 25 text/htm l COPDReported by PatientROS as noted in the HPI This is a 54-year-old female who comes in today for evaluation. Patient was recently seen in the walk-in and was started on prednisone and Levaquin for COPD exacerbation. Patient is still currently taking the medication. The patient states that her legs feel heavy. The patient is concerned that she still continues to have issues with her COPD. Patient is interested in trying a nebulizer to see if that is more effective for her. Brandie Guillen MD [address] [place] [address], [phone], [facility] 01/19/2025 16:01:54 02/04/20 25 text/htm l CoughReported by PatientHPIFor associated symptoms, patient reportschest pain,wheezing,sputum production,chest wall tenderness,shortness of breath,throat clearing, andhoarsenessbut reportsno feverandno chills. For quality, patient reportsproductive,harsh, andbarking. For duration, patient reportsconstantandsubacute (3-8 weeks). For onset/timing, patient reportsgradual. For context, patient reportsnon-smoker (stopped on 01-28-25.).ROS as noted in the HPI Pt is here for chest congestion. Pt is using her nebulizer with albuterol and her inhalers, but states that it is not helping. Pt stopped smoking on 01-28-25.Pt states that she is coughing up infection. Brandie Guillen MD [address] [place] [address], [phone], [facility] 02/05/2025 21:32:00 04/24/20 25 text/htm l Pt states she thinks she is going through the change of life, has stopped smoking Jan 28 2025.Would like to discuss weight loss patches if her insurance will pay, and fluid retention issues.No period for 10-13 years, yet has Hot flashes, mood swings, weight gain and would like to consider hormone replacement therapy.Breztri is not as effective as it once was when she first used it, would like trial a different inhaler. Brandie Guillen MD [address] [place] [address], [phone], [facility] 04/25/2025 15:50:15 07/25/20 25 text/htm l The patient is a 55-year-old female presenting [...] possible pain-relieving hip injections. Brandie Guillen MD [address] [place] [address], [phone], [facility] 07/25/2025 16:10:29 OBGyn Episode No OBEpisode recorded.
--- NOTE | 2025-08-21 18:21 | XRR_ITS ---
PROCEDURE INFORMATION: Exam: XR Sternum Exam date and time: 08/21/2025 6:46 PM Age: 55 years old Clinical indication: Injury or trauma; Fall; Sprain or strain; Additional info: Pain TECHNIQUE: Imaging protocol: Radiologic exam of the sternum. Views: 2 or more views. COMPARISON: CR (CHEST, ) 08/21/2025 6:35 PM FINDINGS: Bones/joints: Sternum is not well characterized given technique, consider further evaluation with a CT if concern for traumatic injury to the sternum remains. Soft tissues: Normal. XR/XR sternum min 2V [id number] IMPRESSION: Sternum is not well characterized given technique, consider further evaluation with a CT if concern for traumatic injury to the sternum remains.
--- NOTE | 2025-08-21 18:36 | W.ED.FALL ---
HPI - Fall General: Chief Complaint: Fall Stated Complaint: Fell Chest Popped SOB Time Seen by Provider: 08/21/25 18:14 History of Present Illness: 55-year-old female presents emergency room with complaint of shortness of breath and pain when she takes a deep breath. She fell at home she fell backwards landed on her buttocks she denies any back pain but when she went to push herself up she felt a popping sensation in the upper part of her sternum and now with any motion or deep breath she has severe pain she has not any hemoptysis. No fever sweats chills or recent illness. Associated symptoms-after fall: Reports chest pain; Denies abdominal pain or neck pain Related Data Home Medications ?Medication ?Instructions ?Recorded ?Confirmed simvastatin 40 mg tablet 40 mg PO DAILY 09/22/19 01/16/25 tramadol 50 mg tablet 50 mg PO Q6H PRN Pain 09/22/19 01/16/25 hydroxyzine HCl 50 mg tablet 50 mg PO BID 07/06/22 01/16/25 chlorthalidone 25 mg tablet 25 mg PO DAILY 10/31/22 01/16/25 irbesartan 300 mg tablet 300 mg PO DAILY 10/31/22 01/16/25 escitalopram oxalate 20 mg tablet 20 mg PO DAILY 05/05/23 01/16/25 budesonide 160 mcg-glycopyr 9 2 inh inhalation BID 11/03/23 01/16/25 mcg-formot 4.8 mcg/actuation HFA inhaler (Breztri Aerosphere) Previous Rx's ?Medication ?Instructions ?Recorded tramadol 50 mg tablet 50 mg PO Q6H PRN pain #20 tabs 10/01/23 hydrocodone 7.5 mg-acetaminophen 1 tab PO Q6H PRN pain 5 days #20 12/08/23 325 mg tablet tabs albuterol sulfate 90 mcg/actuation 2 puff inhalation QID #6.7 grams 05/10/24 aerosol inhaler (Ventolin HFA) fluconazole 150 mg tablet 150 mg PO Q3D 2 doses #2 tabs 11/29/24 fluconazole 150 mg tablet 150 mg PO Q3D 2 doses #2 tabs 01/16/25 levofloxacin 750 mg tablet 750 mg PO DAILY #7 tabs 01/16/25 prednisone 20 mg tablet 40 mg (2 x 20 mg) PO DAILY 5 days 01/16/25 #10 tabs triamcinolone acetonide 55 mcg 2 spray intranasal DAILY #16.9 mL 01/16/25 nasal spray aerosol (Nasacort Allergy) Allergies Allergy/AdvReac Type Severity Reaction Status Date / Time tizanidine (From Zanaflex) Allergy syncope Verified 08/21/25 18:10 Review of Systems Const: Denies: fever(s) or chills Card: Reports: chest pain Resp: Denies: dyspnea GI: Denies: abdominal pain : Denies: dysuria, urinary frequency or urinary urgency Musc: Denies: neck pain or back pain Skin/Breast: Denies: rash PFSH ED PFSH: Medical History Cystitis ESBL E Coli Sciatica of left side Immunization counseling High risk medication use Seropositive rheumatoid arthritis of multiple sites Depression with anxiety HTN (hypertension) COPD (chronic obstructive pulmonary disease) Hyperlipidemia Surgical History History of ankle surgery Family History Father Hyperlipidemia Lymphoma Renal failure Mother Hyperlipidemia Social History Smoking and tobacco/nicotine status: current every day tobacco/nicotine user cigarettes Packs smoked per day: 0.5 Years cigarettes smoked: 25 [ Other cigarette details: Hx of 1PPD x 25 Years] Alcohol intake: never Substance/Drug Use: never Lives independently: Yes Household members: family Current occupational status: disabled Do you think of yourself as: Straight/Heterosexual Current gender identity: Female Physical Exam Const: GENERAL APPEARANCE: cooperative ORIENTATION/CONSCIOUSNESS: Yes awake, Yes oriented to person, Yes oriented to place and Yes oriented to time HENMT: COMMON NORMALS: normocephalic, atraumatic and hearing grossly normal bilaterally HEAD & SCALP: normocephalic and atraumatic Chest: OTHER: Pain reproducible to palpation on the upper sternum particularly on the right upper sternal border. No crepitus with palpation Resp: COMMON NORMALS: normal respiratory effort, No retractions, No use of accessory muscles and clear to auscultation bilaterally AUSCULTATION: clear to auscultation bilaterally Cardio: COMMON NORMALS: regular rate, regular rhythm and No murmurs present (Cardio) RATE: regular rate RHYTHM: regular rhythm GI: COMMON NORMALS: Soft to palpation and No hepatosplenomegaly present AUSCULTATION: Yes normoactive bowel sounds PALPATION: Yes Soft to palpation, No Tenderness to palpation present (GI), No Guarding due to palpation present (GI) and Yes No hepatosplenomegaly present Extremity: COMMON NORMALS: normal to inspection, capillary refill normal, no clubbing, cyanosis or edema, no calf tenderness and no pedal edema Neuro: SENSORIUM/ORIENTATION: Yes oriented to person, Yes oriented to place and Yes oriented to time Skin: COMMON NORMALS: no rashes or lesions noted GENERAL SKIN EXAM: no rashes or lesions noted Course Vital Signs: Vital signs: Vital Signs Temperature 97.5 F L 08/21/25 18:04 Pulse Rate 83 08/21/25 20:43 Respiratory Rate 18 08/21/25 19:57 Blood Pressure 135/84 08/21/25 20:43 Pulse Oximetry 97 08/21/25 20:43 Oxygen Delivery Me thod Room Air 08/21/25 20:02 MDM - Fall Medical Decision Making Medical decision making Social determinants: None I reviewed the patient's medical record. I reviewed the patient's current home meds> Alternate historians: None Differential diagnosis: Muscle strain versus sternal fracture Lab Review: No labs done Imaging: Chest x-ray negative sternum difficult to view because of body habitus. Assessment of risk Level of risk: Low Hospitalization considerations: No specific trauma no indication for hospitalization Reexamination: Pain improved with medications given. Pain is still reproducible with palpation. Assessment and plan: There is no direct blow or trauma patient describes pushing herself up think she strained a muscle at that point. Will discharge home with pain medications. Discomfort continues to be reproducible with palpation. Patient discharged home with hydrocodone The time patient was discharged there is any EMR outage. Reviewed findings verbally with the patient she expressed understanding written prescription given for hydrocodone 5/325 mg. 1 tablet every 6 hours as needed for pain can apply ice to the area as well. Expressed understanding of laboratory test diagnosis and discharge instructions. Lab Data Radiology Impressions Chest X-Ray 08/21/25 18:04 IMPRESSION: Cardiomegaly, negative for infiltrate. Sternum X-Ray 08/21/25 18:21 IMPRESSION: Sternum is not well characterized given technique, consider further evaluation with a CT if concern for traumatic injury to the sternum remains. All radiology interpretation(s) finalized by discharge Discharge Plan Discharge Patient Disposition: Home Clinical Impression: Musculoskeletal chest pain Condition: Stable Prescriptions: No Action tramadol 50 mg tablet 50 mg PO Q6H PRN (Reason: Pain) simvastatin 40 mg tablet 40 mg PO DAILY hydroxyzine HCl 50 mg tablet 50 mg PO BID hydrocodone-acetaminophen 7.5-325 mg tablet 1 tab PO Q6H PRN (Reason: pain) 5 Days Qty: 20 0RF albuterol sulfate [Ventolin HFA] 90 mcg/actuation HFA aerosol inhaler 2 puff inhalation QID Qty: 6.7 0RF irbesartan 300 mg tablet 300 mg PO DAILY chlorthalidone 25 mg tablet 25 mg PO DAILY escitalopram oxalate 20 mg tablet 20 mg PO DAILY Breztri Aerosphere 160-9-4.8 mcg/actuation HFA aerosol inhaler 2 inh inhalation BID fluconazole 150 mg tablet 150 mg PO Q3D 0 Days Qty: 2 1RF Rx Instructions: may repeat second dose 72 hrs after first dose if symptoms persist fluconazole 150 mg tablet 150 mg PO Q3D 0 Days Qty: 2 0RF prednisone 20 mg tablet 40 mg PO DAILY 5 Days Qty: 10 0RF triamcinolone acetonide [Nasacort Allergy] 55 mcg aerosol,spray 2 spray intranasal DAILY Qty: 16.9 0RF Rx Instructions: administer into each nostril levofloxacin 750 mg tablet 750 mg PO DAILY Qty: 7 0RF tramadol 50 mg tablet 50 mg PO Q6H PRN (Reason: pain) Qty: 20 0RF Discharge Orders: Discharge ED (Routine); Ordered 08/21/25 Ordered By: Dequan Chen Referrals: Brian Guillen MD [Primary Care Provider, Family Practice] Patient Instructions: Chest Pain (ED), Opioid Safety, Pain Management, Patient Portal & [facility] Instructions Print Language: Iranian Coding Level of Care Code ED Psychologist [facility]
[2025-08-21 19:39] VITALS: BP 129/89; PULSE 85; O2SAT 96
[2025-08-21 19:57] VITALS: RESP 18; O2SAT 95
[2025-08-21] MEDS: morphine 4 mg/mL SDV 1 mL IVP (19:57)
[2025-08-21 20:02] VITALS: BP 114/65; PULSE 79; O2SAT 97
[2025-08-21 20:43] VITALS: BP 135/84; PULSE 83; O2SAT 97
[2025-08-21] MEDS: HYDROcodone-acetaminophen 5-325 mg Tablet 2 TAB PO (20:49)
== END 2025-08-21 20:54 | disposition home or self-care (01) ==
PROVIDERS: Emergency Provider Family Medicine; PCP Family Medicine
DX: R07.89 Other chest pain (principal); F17.210 Nicotine dependence, cigarettes, uncomplicated; E78.5 Hyperlipidemia, unspecified; J44.9 Chronic obstructive pulmonary disease, unspecified
CPT/HCPCS: 71045; 71120; 96374; 99284; J2270; J9999

== ENCOUNTER 2025-09-04 08:10 | Outpatient (CLI) | payer MEDICARE, SELFPAY ==
--- NOTE | 2025-09-04 08:14 | CT_ITS ---
WS: [id number] CT chest wo con [id number] HISTORY: COSTOCHONDRAL CHEST PAIN TECHNIQUE: Axial imaging performed through the thorax. Coronal and sagittal reformats are submitted. All CT scans at [facility] use at least one of these dose optimization techniques: automated exposure control; mA and/or kV adjustment per patient size (includes targeted exams where dose is matched to clinical indication); or iterative reconstruction. CONTRAST: None DLP: 686.07 mGy.cm COMPARISON: 01/03/2020 Lungs and central airway: Moderate diffuse interstitial thickening throughout both lungs. Posterior subpleural nodules in the posterior RIGHT upper lobe with the largest measuring 7 mm. This may contain a central calcifications. Minimal change since 01/03/2020. Granuloma at the LEFT lung base. Pleural calcification at the RIGHT lung base. Pleura: Normal. No pleural effusion. Heart and pericardium: Mild cardiomegaly. No pericardial effusion. Mediastinum and betsy: Limited evaluation of the mediastinum and betsy without IV contrast. There are a few small scattered lymph nodes. No adenopathy is identified. There are calcified lymph nodes at the LEFT hilum. Vessels: Normal size aortic and pulmonary artery. No coronary artery calcifications. Chest wall and lower neck: Mild increased soft tissue surrounding the superior sternal body. Nondisplaced fracture involving the superior sternal body. Upper abdomen: Small hiatal hernia. Mild hepatic steatosis. No adrenal mass. Osseous structures: Nondisplaced fracture superior sternal body no rib fractures are identified. Focal degenerative kyphosis at the thoracolumbar junction. CT/CT chest wo con [id number] IMPRESSION: 1. Nondisplaced superior sternal body fracture. Small amount of adjacent soft tissue thickening from the contusion injury. No compression upon the mediastinu m. 2. No rib fractures identified. 3. Interstitial fibrosis. RIGHT upper lobe pulmonary nodules previously descri bed in 2019 without significant increase in size. 4. Prior granulomatous disease. 5. Focal kyphosis centered at thoracolumbar junction. Secondary to mild anteri or wedging at T12.
== END 2025-09-04 08:11 | disposition home or self-care (01) ==
PROVIDERS: PCP Family Medicine; Visit Provider Family Medicine
DX: S22.22XA Fracture of body of sternum, initial encounter for closed fracture (principal); X58.XXXA Exposure to other specified factors, initial encounter; J98.4 Other disorders of lung; R91.1 Solitary pulmonary nodule; I51.7 Cardiomegaly; R59.0 Localized enlarged lymph nodes; K44.9 Diaphragmatic hernia without obstruction or gangrene; K76.0 Fatty (change of) liver, not elsewhere classified; M40.205 Unspecified kyphosis, thoracolumbar region
CPT/HCPCS: 71250